=== PATIENT | female | born 1950 | race Asian ===

== ENCOUNTER 2017-09-26 12:54 | Inpatient (IN) | payer MEDICARE, OTHER, MEDICAID ==
[2017-09-26] MEDS: PIPER-TAZO 2.25 GM (PMX) 50 ML IVPB (02:00)
[2017-09-26] MEDS: LEVALBUTEROL (NEB) 1.25 MG/0.5 ML AMP INH (13:30)
[2017-09-26] MEDS: IPRATROPIUM (NEB) 0.5 MG/2.5 ML AMP NEB (13:30)
[2017-09-26 13:39] LABS: ADD MAN DIFF? NO
[2017-09-26 13:44] LABS: WHITE BLOOD COUNT 8.6 10^3/ul (4.8-10.8)
[2017-09-26 13:44] LABS: BASOPHILS % 0.2 % (0.0-2.0); EOSINOPHILS # 0.1 10^3/ul (0.0-0.5); EOSINOPHILS % 1.5 % (0.0-7.0); HEMOGLOBIN 7.4 g/dl (12.0-16.0); LYMPHOCYTES # 0.8 10^3/ul (0.8-2.9); LYMPHOCYTES % 9.8 % (15.0-51.0); MEAN CORPUSCULAR HGB CONC 32.2 g/dl (32.0-37.0); MEAN CORPUSCULAR VOLUME 96.2 fl (82.0-101.0); MEAN PLATELET VOLUME 10.3 fl (7.4-10.4); MONOCYTE # 1.2 10^3/ul (0.3-0.9); MONOCYTES % 13.9 % (0.0-11.0); NEUTROPHIL # 6.3 10^3/ul (1.6-7.5); NEUTROPHILS % 73.4 % (39.0-77.0); NUCLEATED RED BLOOD CELLS% 0.4 /100WBC (0.0-0.0); PLATELET COUNT 141 10^3/UL (140-415); RED BLOOD COUNT 2.39 10^6/ul (4.20-5.40); RED CELL DISTRIBUTION WIDTH 17.4 % (11.5-14.5)
[2017-09-26 13:56] LABS: Allen Test ACCEPTAB; Arterial Base Excess -1.3 mmol/L (-3.0-3); Arterial Blood Gas Oxygen Sat 99.7 mmHG (95.0-98.0); Arterial COHb 1.3 % (0.0-3.0); Arterial Fraction of Oxyhgb 98.2 % (93.0-99.0); Arterial HCO3 25.5 mmol/L (22.0-26.0); Arterial MetHb 0.2 % (0.0-1.5); Arterial Total Hemglobin 8.5 g/dl (12.0-18.0); Arterial pCO2 53.8 mmhg (35-45); MODE MASK - SIMPLE; Site Right Radial
[2017-09-26] MEDS: NACL 3% FOR INHALATION 15 ML NEBU NEB (14:00)
[2017-09-26 14:05] LABS: INR 1.04; PROTIME 13.7 Sec (11.9-14.9); PT RATIO 1.1
[2017-09-26 14:06] LABS: PARTIAL THROMBOPLASTIN TIME 36.5 Sec (25.0-35.0)
[2017-09-26 14:07] LABS: ALANINE AMINOTRANSFERASE 17 IU/L (13-69); ALBUMIN 3.4 g/dl (3.3-4.9); ALBUMIN/GLOBULIN RATIO 0.97; ALKALINE PHOSPHATASE 108 IU/L (42-121); ANION GAP 17 (8-16); ASPARTATE AMINO TRANSFERASE 32 IU/L (15-46); BLOOD UREA NITROGEN 54 mg/dl (7-20); CALCIUM 8.8 mg/dl (8.4-10.2); CARBON DIOXIDE 25 mmol/L (21-31); CHLORIDE 88 mmol/L (97-110); CREATININE 3.86 mg/dl (0.44-1.00); GLUCOSE 132 mg/dl (70-220); POTASSIUM 5.2 mmol/L (3.5-5.1); SODIUM 125 mmol/L (135-144); TOTAL PROTEIN 6.9 g/dl (6.1-8.1)
[2017-09-26 14:08] LABS: LACTIC ACID 1.1 mmol/L (0.5-2.0)
[2017-09-26 14:17] LABS: TROPONIN-I 0.024 ng/ml (0.00-0.12)
[2017-09-26 14:32] LABS: MAGNESIUM 2.3 mg/dl (1.7-2.5)
[2017-09-26] MEDS: MIDODRINE 5 MG TAB GTB (15:23)
[2017-09-26 15:37] LABS: LACTIC ACID 0.9 mmol/L (0.5-2.0)
[2017-09-26] MEDS: CEFEPIME 1GM/50 ML (PMX) 50 ML IVPB (16:44)
[2017-09-26] MEDS ORDERED: NITROGLYCERIN (SL) 0.4 MG TAB SL (17:00)
[2017-09-26] MEDS ORDERED: NACL 0.9% 3 ML SYG IV (17:00)
[2017-09-26] MEDS ORDERED: DOCUSATE SODIUM 100 MG CAP PO (17:00)
[2017-09-26] MEDS ORDERED: METOCLOPRAMIDE 5 MG TAB GTB (17:00)
[2017-09-26] MEDS ORDERED: hydrALAzine 20 MG INJ IV (17:00)
[2017-09-26] MEDS ORDERED: ONDANSETRON 4 MG TAB GTB (17:00)
[2017-09-26] MEDS: ALBUMIN HUMAN 25% 100 ML IV ×2 (17:00→19:02)
[2017-09-26] MEDS ORDERED: NA PHOSPHATE/BIPHOS 133 ML ENEMA PR (17:00)
[2017-09-26] MEDS ORDERED: ACETAMINOPHEN 325 MG TAB PO (17:00)
[2017-09-26] MEDS ORDERED: MAGNESIUM HYDROXIDE 30ML CUP PO (17:00)
[2017-09-26] MEDS: AZITHROMYCIN 500MG/NS (PMX) 250 ML IVPB (17:23)
[2017-09-26] MEDS: ALBUTEROL/IPRATROPIUM (NEB) 3 ML AMP HHN (17:42)
[2017-09-26 17:54] LABS: FREE T4 (FREE THYROXINE) 2.19 ng/dl (0.78-2.44)
[2017-09-26 18:00] LABS: LACTIC ACID 0.8 mmol/L (0.5-2.0)
[2017-09-26] MEDS ORDERED: PIPER-TAZO 3.375 GM IV (PMX) 100 ML IVPB (18:00)
[2017-09-26] MEDS: VANCOMYCIN 1 GM (PMX) 250 ML IVPB (19:02)
[2017-09-26] MEDS ORDERED: MIDODRINE 5 MG TAB GTB (21:00)
[2017-09-27] MEDS: LACTOBACILLUS RHAMNOSUS CAP PO ×3 (00:14→21:00)
[2017-09-27] MEDS: ALBUMIN HUMAN 25% 100 ML IV (00:30)
[2017-09-27] MEDS ORDERED: PHENYLephrine 40 MG in DEXTROSE 5% 496 ML IV (01:30)
[2017-09-27] MEDS: NORepinephrine 8MG/250 ML (PMX 250 ML IV (01:59)
[2017-09-27] MEDS: PIPER-TAZO 2.25 GM (PMX) 50 ML IVPB ×4 (02:00→17:37)
[2017-09-27 02:40] LABS: AADO2 Arterial 180.7 mmHg (7.0-24.0); Allen Test ACCEPTAB; Arterial Base Excess -2.4 mmol/L (-3.0-3); Arterial Blood Gas Oxygen Sat 99.7 mmHG (95.0-98.0); Arterial COHb 1.1 % (0.0-3.0); Arterial Fraction of Oxyhgb 98.2 % (93.0-99.0); Arterial HCO3 22.4 mmol/L (22.0-26.0); Arterial MetHb 0.4 % (0.0-1.5); Arterial pCO2 38.4 mmhg (35-45); MODE VENT - AC; Site Right Radial
[2017-09-27 02:51] LABS: ADD MAN DIFF? NO
[2017-09-27] MEDS ORDERED: HEPARIN 1000 UNITS/ML 10 ML INJ (02:52)
[2017-09-27 02:55] LABS: ABNORMAL IP MESSAGE 1; BASOPHILS % 0.2 % (0.0-2.0); EOSINOPHILS % 0.4 % (0.0-7.0); HEMATOCRIT 21.9 % (37.0-47.0); LYMPHOCYTES # 0.2 10^3/ul (0.8-2.9); LYMPHOCYTES % 2.1 % (15.0-51.0); MEAN CORPUSCULAR HEMOGLOBIN 30.6 pg (29.0-33.0); MEAN CORPUSCULAR HGB CONC 31.1 g/dl (32.0-37.0); MEAN CORPUSCULAR VOLUME 98.6 fl (82.0-101.0); MEAN PLATELET VOLUME 9.8 fl (7.4-10.4); MONOCYTE # 0.9 10^3/ul (0.3-0.9); MONOCYTES % 8.6 % (0.0-11.0); NEUTROPHIL # 8.8 10^3/ul (1.6-7.5); NEUTROPHILS % 86.1 % (39.0-77.0); NUCLEATED RED BLOOD CELLS% 0.3 /100WBC (0.0-0.0); RED BLOOD COUNT 2.22 10^6/ul (4.20-5.40); RED CELL DISTRIBUTION WIDTH 17.8 % (11.5-14.5)
[2017-09-27 02:55] LABS: WHITE BLOOD COUNT 10.2 10^3/ul (4.8-10.8)
[2017-09-27 02:57] LABS: PLATELET COUNT 111 10^3/UL (140-415); POSITIVE DIFF @See below
[2017-09-27 03:11] LABS: CHOLESTEROL 98 mg/dl (100-200)
[2017-09-27 03:11] LABS: HDL CHOLESTEROL 32 mg/dl (35-98); LDL CHOLESTEROL,CALCULATED 48 mg/dl; TRIGLYCERIDES 91 mg/dl (0-149)
[2017-09-27 03:12] LABS: ALANINE AMINOTRANSFERASE 18 IU/L (13-69); ALBUMIN 3.8 g/dl (3.3-4.9); ALBUMIN/GLOBULIN RATIO 1.31; ALKALINE PHOSPHATASE 97 IU/L (42-121); ANION GAP 21 (8-16); ASPARTATE AMINO TRANSFERASE 25 IU/L (15-46); BILIRUBIN,INDIRECT 0.1 mg/dl (0-1.1); BILIRUBIN,TOTAL 0.1 mg/dl (0.2-1.3); BLOOD UREA NITROGEN 32 mg/dl (7-20); CALCIUM 8.6 mg/dl (8.4-10.2); CARBON DIOXIDE 26 mmol/L (21-31); CHLORIDE 91 mmol/L (97-110); CREATININE 2.75 mg/dl (0.44-1.00); GLUCOSE 112 mg/dl (70-220); POTASSIUM 4.4 mmol/L (3.5-5.1); SODIUM 134 mmol/L (135-144); TOTAL PROTEIN 6.7 g/dl (6.1-8.1)
[2017-09-27] MEDS: HEPARIN 1000 UNITS/ML 10 ML INJ CATHETER (03:12)
[2017-09-27 03:23] LABS: TROPONIN-I 0.032 ng/ml (0.00-0.12)
[2017-09-27 03:38] LABS: HEMOGLOBIN 6.8 g/dl (12.0-16.0)
[2017-09-27 03:51] LABS: LACTIC ACID 5.1 mmol/L (0.5-2.0)
[2017-09-27 04:36] LABS: ADD MAN DIFF? NO
[2017-09-27 05:01] LABS: ANION GAP 21 (8-16); BLOOD UREA NITROGEN 34 mg/dl (7-20); CALCIUM 8.9 mg/dl (8.4-10.2); CARBON DIOXIDE 26 mmol/L (21-31); CHLORIDE 93 mmol/L (97-110); CREATININE 2.65 mg/dl (0.44-1.00); GLUCOSE 103 mg/dl (70-220); MAGNESIUM 2.1 mg/dl (1.7-2.5); PHOSPHORUS 4.9 mg/dl (2.5-4.9); POTASSIUM 4.9 mmol/L (3.5-5.1); SODIUM 135 mmol/L (135-144)
[2017-09-27 05:02] LABS: IMMEDIATE SPIN CROSSMATCH 1 4
[2017-09-27 05:23] LABS: BASOPHILS % 0.2 % (0.0-2.0); EOSINOPHILS % 0.2 % (0.0-7.0); HEMATOCRIT 22.7 % (37.0-47.0); HEMOGLOBIN 7.2 g/dl (12.0-16.0); LYMPHOCYTES % 3.2 % (15.0-51.0); MEAN CORPUSCULAR HEMOGLOBIN 30.8 pg (29.0-33.0); MEAN CORPUSCULAR HGB CONC 31.7 g/dl (32.0-37.0); MEAN PLATELET VOLUME 9.5 fl (7.4-10.4); MONOCYTES % 11.4 % (0.0-11.0); NEUTROPHILS % 82.8 % (39.0-77.0); PLATELET COUNT 142 10^3/UL (140-440); RED BLOOD COUNT 2.34 10^6/ul (4.20-5.40); RED CELL DISTRIBUTION WIDTH 17.6 % (11.5-14.5)
[2017-09-27 05:23] LABS: WHITE BLOOD COUNT 11.6 10^3/ul (4.8-10.8)
[2017-09-27 05:24] LABS: LYMPHOCYTES # 0.4 10^3/ul (0.8-2.9); MONOCYTE # 1.3 10^3/ul (0.3-0.9); NEUTROPHIL # 9.6 10^3/ul (1.6-7.5); NUCLEATED RED BLOOD CELLS% 0.2 /100WBC (0.0-0.0)
[2017-09-27] MEDS: LANSOPRAZOLE 30 MG CAP GTB (06:00)
[2017-09-27] MEDS ORDERED: EPINEPHrine 0.1 MG/ML SYG (07:00)
[2017-09-27] MEDS ORDERED: NA BICARBONATE 8.4% 50 ML SYG (07:00)
[2017-09-27] MEDS: LEVOTHYROXINE 150 MCG TAB GTB (07:00)
[2017-09-27] MEDS: SILDENAFIL 20 MG TAB GTB (08:57)
[2017-09-27] MEDS: MIDODRINE 5 MG TAB GTB ×3 (08:57→17:37)
[2017-09-27] MEDS: FOLIC ACID 1 MG TAB GTB (08:57)
[2017-09-27] MEDS: LACTULOSE 30ML CUP GTB (08:57)
[2017-09-27 12:18] LABS: LACTIC ACID 1.5 mmol/L (0.5-2.0)
[2017-09-27] MEDS: HYDROCODONE/APAP (5/325) TAB PO (15:02)
[2017-09-27 15:34] LABS: LACTIC ACID 1.2 mmol/L (0.5-2.0)
[2017-09-27] MEDS: EPOETIN 10000 UNITS/1 ML INJ (ESRD) SC (17:39)
[2017-09-27 19:06] LABS: LACTIC ACID 1.1 mmol/L (0.5-2.0)
[2017-09-27 22:28] LABS: LACTIC ACID 1.1 mmol/L (0.5-2.0)
[2017-09-27] MEDS: morphine 2 MG INJ IV (23:06)
[2017-09-28] MEDS: PIPER-TAZO 2.25 GM (PMX) 50 ML IVPB ×4 (00:37→18:42)
[2017-09-28 03:20] LABS: LACTIC ACID 1.1 mmol/L (0.5-2.0)
[2017-09-28 05:37] LABS: ADD MAN DIFF? NO
[2017-09-28 05:39] LABS: BASOPHILS % 0.4 % (0.0-2.0); EOSINOPHILS # 0.1 10^3/ul (0.0-0.5); EOSINOPHILS % 0.8 % (0.0-7.0); HEMOGLOBIN 7.6 g/dl (12.0-16.0); LYMPHOCYTES # 0.9 10^3/ul (0.8-2.9); LYMPHOCYTES % 10.3 % (15.0-51.0); MEAN CORPUSCULAR HEMOGLOBIN 30.6 pg (29.0-33.0); MEAN CORPUSCULAR VOLUME 92.7 fl (82.0-101.0); MEAN PLATELET VOLUME 9.1 fl (7.4-10.4); MONOCYTE # 0.9 10^3/ul (0.3-0.9); MONOCYTES % 11.1 % (0.0-11.0); NEUTROPHIL # 6.5 10^3/ul (1.6-7.5); NEUTROPHILS % 76.7 % (39.0-77.0); NUCLEATED RED BLOOD CELLS% 0.2 /100WBC (0.0-0.0); PLATELET COUNT 117 10^3/UL (140-415); RED BLOOD COUNT 2.48 10^6/ul (4.20-5.40); RED CELL DISTRIBUTION WIDTH 18.1 % (11.5-14.5)
[2017-09-28 05:39] LABS: WHITE BLOOD COUNT 8.5 10^3/ul (4.8-10.8)
[2017-09-28] MEDS: LANSOPRAZOLE 30 MG CAP GTB (06:00)
[2017-09-28 06:02] LABS: MAGNESIUM 2.1 mg/dl (1.7-2.5)
[2017-09-28 06:10] LABS: ANION GAP 20 (8-16); BLOOD UREA NITROGEN 38 mg/dl (7-20); CALCIUM 8.7 mg/dl (8.4-10.2); CARBON DIOXIDE 23 mmol/L (21-31); CHLORIDE 94 mmol/L (97-110); CREATININE 3.52 mg/dl (0.44-1.00); GLUCOSE 61 mg/dl (70-220); POTASSIUM 3.4 mmol/L (3.5-5.1); SODIUM 134 mmol/L (135-144)
[2017-09-28] MEDS: LEVOTHYROXINE 150 MCG TAB GTB (07:00)
[2017-09-28] MEDS: LIDOCAINE 1% (MPF) 5 ML VIAL SC (07:22)
[2017-09-28] MEDS: POTASSIUM CHLORIDE 100 ML IVPB (08:44)
[2017-09-28] MEDS: SILDENAFIL 20 MG TAB GTB (09:00)
[2017-09-28] MEDS: MIDODRINE 5 MG TAB GTB ×3 (09:00→16:53)
[2017-09-28] MEDS: FOLIC ACID 1 MG TAB GTB (09:00)
[2017-09-28] MEDS: LACTULOSE 30ML CUP GTB (09:00)
[2017-09-28] MEDS: LACTOBACILLUS RHAMNOSUS CAP PO ×2 (09:00→20:53)
[2017-09-28] MEDS: FLUCONAZOLE 100 MG TAB PO (13:00)
[2017-09-28] MEDS: IOHEXOL 14.3 MG(I)/ML (ADULT) BTL PO (13:46)
[2017-09-28] MEDS: morphine 2 MG INJ IV (13:56)
[2017-09-28 14:20] LABS: PATH REVIEW CH
[2017-09-28] MEDS: LORAZEPAM 0.5 MG TAB GTB (20:53)
[2017-09-28] MEDS: HYDROCODONE/APAP (5/325) TAB PO (20:54)
[2017-09-29] MEDS: ALBUMIN HUMAN 25% 100 ML IV (01:08)
[2017-09-29] MEDS: PIPER-TAZO 2.25 GM (PMX) 50 ML IVPB ×3 (05:13→12:00)
[2017-09-29] MEDS: LANSOPRAZOLE 30 MG CAP GTB (05:13)
[2017-09-29 06:02] LABS: ADD MAN DIFF? NO
[2017-09-29 06:08] LABS: BASOPHIL # 0.1 10^3/ul (0.0-0.1); BASOPHILS % 0.7 % (0.0-2.0); EOSINOPHILS # 0.2 10^3/ul (0.0-0.5); EOSINOPHILS % 3.4 % (0.0-7.0); HEMATOCRIT 23.4 % (37.0-47.0); HEMOGLOBIN 7.6 g/dl (12.0-16.0); LYMPHOCYTES # 1.2 10^3/ul (0.8-2.9); LYMPHOCYTES % 17.1 % (15.0-51.0); MEAN CORPUSCULAR HEMOGLOBIN 30.3 pg (29.0-33.0); MEAN CORPUSCULAR HGB CONC 32.5 g/dl (32.0-37.0); MEAN CORPUSCULAR VOLUME 93.2 fl (82.0-101.0); MEAN PLATELET VOLUME 9.8 fl (7.4-10.4); MONOCYTE # 0.9 10^3/ul (0.3-0.9); MONOCYTES % 12.7 % (0.0-11.0); NEUTROPHIL # 4.4 10^3/ul (1.6-7.5); NEUTROPHILS % 64.8 % (39.0-77.0); PLATELET COUNT 133 10^3/UL (140-415); RED BLOOD COUNT 2.51 10^6/ul (4.20-5.40); RED CELL DISTRIBUTION WIDTH 17.9 % (11.5-14.5)
[2017-09-29 06:08] LABS: WHITE BLOOD COUNT 6.9 10^3/ul (4.8-10.8)
[2017-09-29] MEDS: LEVOTHYROXINE 150 MCG TAB GTB (06:09)
[2017-09-29] MEDS: NORepinephrine 16 MG in SOD CHLORIDE 0.9% 484 ML IV (06:11)
[2017-09-29 06:48] LABS: ANION GAP 28 (8-16); BLOOD UREA NITROGEN 41 mg/dl (7-20); CALCIUM 8.8 mg/dl (8.4-10.2); CARBON DIOXIDE 16 mmol/L (21-31); CHLORIDE 93 mmol/L (97-110); CREATININE 3.86 mg/dl (0.44-1.00); POTASSIUM 3.6 mmol/L (3.5-5.1); SODIUM 133 mmol/L (135-144)
[2017-09-29] MEDS: DEXTROSE 50% 50 ML SYRINGE IV (07:00)
[2017-09-29 07:03] LABS: GLUCOSE 38 mg/dl (70-220)
[2017-09-29] MEDS ORDERED: DEXTROSE 50% 50 ML SYRINGE (07:13)
[2017-09-29] MEDS: MIDODRINE 5 MG TAB GTB ×3 (09:00→17:00)
[2017-09-29] MEDS: LACTULOSE 30ML CUP GTB (09:00)
[2017-09-29] MEDS: LACTOBACILLUS RHAMNOSUS CAP PO ×2 (09:00→21:00)
[2017-09-29] MEDS: FLUCONAZOLE 100 MG TAB PO (09:00)
[2017-09-29] MEDS: FOLIC ACID 1 MG TAB GTB (09:00)
[2017-09-29] MEDS: SILDENAFIL 20 MG TAB GTB (09:00)
[2017-09-29 12:16] LABS: LACTIC ACID 0.7 mmol/L (0.5-2.0)
[2017-09-29 13:30] LABS: HEPATITIS B SURFACE ANTIGEN NEGATIVE (NEGATIVE)
[2017-09-29] MEDS: HEPARIN 1000 UNITS/ML 10 ML INJ CATHETER (15:08)
[2017-09-29] MEDS: MEROPENEM 500MG/50 ML (PMX) 50 ML IVPB (16:28)
[2017-09-29] MEDS: morphine 2 MG INJ IV (16:28)
[2017-09-29] MEDS: EPOETIN 10000 UNITS/1 ML INJ (ESRD) SC (18:32)
[2017-09-29] MEDS: TOBRAMYCIN/0.25NS 300 MG/5 ML INHAL NEB (21:20)
[2017-09-29] MEDS: HYDROCODONE/APAP (5/325) TAB PO (23:15)
[2017-09-29] MEDS: LORAZEPAM 0.5 MG TAB GTB (23:16)
[2017-09-30 05:46] LABS: ADD MAN DIFF? NO
[2017-09-30 05:50] LABS: BASOPHILS % 0.5 % (0.0-2.0); EOSINOPHILS # 0.2 10^3/ul (0.0-0.5); EOSINOPHILS % 2.3 % (0.0-7.0); HEMATOCRIT 25.3 % (37.0-47.0); HEMOGLOBIN 8.1 g/dl (12.0-16.0); LYMPHOCYTES # 1.2 10^3/ul (0.8-2.9); LYMPHOCYTES % 14.1 % (15.0-51.0); MEAN CORPUSCULAR VOLUME 93.7 fl (82.0-101.0); MEAN PLATELET VOLUME 9.4 fl (7.4-10.4); MONOCYTE # 1.2 10^3/ul (0.3-0.9); MONOCYTES % 15.2 % (0.0-11.0); NEUTROPHIL # 5.4 10^3/ul (1.6-7.5); NEUTROPHILS % 66.8 % (39.0-77.0); PLATELET COUNT 154 10^3/UL (140-415); RED CELL DISTRIBUTION WIDTH 18.3 % (11.5-14.5)
[2017-09-30 05:50] LABS: WHITE BLOOD COUNT 8.1 10^3/ul (4.8-10.8)
[2017-09-30 06:07] LABS: LACTIC ACID 0.9 mmol/L (0.5-2.0)
[2017-09-30 06:13] LABS: ANION GAP 23 (8-16); BLOOD UREA NITROGEN 18 mg/dl (7-20); CALCIUM 8.6 mg/dl (8.4-10.2); CARBON DIOXIDE 21 mmol/L (21-31); CHLORIDE 100 mmol/L (97-110); CREATININE 2.15 mg/dl (0.44-1.00); GLUCOSE 68 mg/dl (70-220); POTASSIUM 3.6 mmol/L (3.5-5.1); SODIUM 140 mmol/L (135-144)
[2017-09-30] MEDS: LEVOTHYROXINE 150 MCG TAB GTB (06:30)
[2017-09-30] MEDS: LANSOPRAZOLE 30 MG CAP GTB (06:30)
[2017-09-30] MEDS: FOLIC ACID 1 MG TAB GTB (08:49)
[2017-09-30] MEDS: LACTULOSE 30ML CUP GTB (08:49)
[2017-09-30] MEDS: FLUCONAZOLE 100 MG TAB PO (08:49)
[2017-09-30] MEDS: LACTOBACILLUS RHAMNOSUS CAP PO ×2 (08:49→20:40)
[2017-09-30] MEDS: MIDODRINE 5 MG TAB GTB ×3 (08:49→18:11)
[2017-09-30] MEDS: TOBRAMYCIN/0.25NS 300 MG/5 ML INHAL NEB ×2 (09:46→19:45)
[2017-09-30] MEDS: SILDENAFIL 20 MG TAB GTB (10:24)
[2017-09-30] MEDS ORDERED: VANCOMYCIN IV PER PHARMACY XX (12:00)
[2017-09-30] MEDS: VANCOMYCIN 1.25 GM in SOD CHLORIDE 0.9% 250 ML IVPB ×2 (13:59→14:02)
[2017-09-30] MEDS: MEROPENEM 500MG/50 ML (PMX) 50 ML IVPB (16:01)
[2017-10-01 05:34] LABS: ADD MAN DIFF? NO; BASOPHIL # 0.1 10^3/ul (0.0-0.1); BASOPHILS % 0.7 % (0.0-2.0); EOSINOPHILS # 0.3 10^3/ul (0.0-0.5); EOSINOPHILS % 3.5 % (0.0-7.0); HEMATOCRIT 25.9 % (37.0-47.0); HEMOGLOBIN 8.2 g/dl (12.0-16.0); LYMPHOCYTES # 1.3 10^3/ul (0.8-2.9); LYMPHOCYTES % 15.4 % (15.0-51.0); MEAN CORPUSCULAR HEMOGLOBIN 30.1 pg (29.0-33.0); MEAN CORPUSCULAR HGB CONC 31.7 g/dl (32.0-37.0); MEAN CORPUSCULAR VOLUME 95.2 fl (82.0-101.0); MEAN PLATELET VOLUME 9.2 fl (7.4-10.4); MONOCYTE # 1.1 10^3/ul (0.3-0.9); MONOCYTES % 12.6 % (0.0-11.0); NEUTROPHIL # 5.7 10^3/ul (1.6-7.5); NEUTROPHILS % 66.3 % (39.0-77.0); PLATELET COUNT 142 10^3/UL (140-415); RED BLOOD COUNT 2.72 10^6/ul (4.20-5.40); RED CELL DISTRIBUTION WIDTH 18.2 % (11.5-14.5)
[2017-10-01 05:34] LABS: WHITE BLOOD COUNT 8.6 10^3/ul (4.8-10.8)
[2017-10-01 06:10] LABS: ANION GAP 16 (8-16); BLOOD UREA NITROGEN 22 mg/dl (7-20); CALCIUM 8.6 mg/dl (8.4-10.2); CARBON DIOXIDE 26 mmol/L (21-31); CHLORIDE 99 mmol/L (97-110); CREATININE 2.82 mg/dl (0.44-1.00); GLUCOSE 101 mg/dl (70-220); POTASSIUM 3.1 mmol/L (3.5-5.1); SODIUM 138 mmol/L (135-144)
[2017-10-01] MEDS: LANSOPRAZOLE 30 MG CAP GTB (06:30)
[2017-10-01] MEDS: LEVOTHYROXINE 150 MCG TAB GTB (06:30)
[2017-10-01] MEDS: POTASSIUM CHLORIDE 20 MEQ POWDER FOR ORAL SOLN GTB (08:34)
[2017-10-01] MEDS: LACTULOSE 30ML CUP GTB (08:34)
[2017-10-01] MEDS: FLUCONAZOLE 100 MG TAB PO (08:35)
[2017-10-01] MEDS: LACTOBACILLUS RHAMNOSUS CAP PO ×2 (08:36→21:26)
[2017-10-01] MEDS: FOLIC ACID 1 MG TAB GTB (08:37)
[2017-10-01] MEDS: MIDODRINE 5 MG TAB GTB ×3 (08:44→16:51)
[2017-10-01] MEDS: SILDENAFIL 20 MG TAB GTB (09:00)
[2017-10-01] MEDS: NORepinephrine 16 MG in SOD CHLORIDE 0.9% 484 ML IV (09:55)
[2017-10-01] MEDS: TOBRAMYCIN/0.25NS 300 MG/5 ML INHAL NEB ×2 (10:15→19:57)
[2017-10-01] MEDS: HEPARIN 1000 UNITS/ML 10 ML INJ CATHETER (14:18)
[2017-10-01] MEDS: MEROPENEM 500MG/50 ML (PMX) 50 ML IVPB (16:20)
[2017-10-01] MEDS: EPOETIN 10000 UNITS/1 ML INJ (ESRD) SC (16:55)
[2017-10-02 05:38] LABS: ADD MAN DIFF? NO
[2017-10-02 05:46] LABS: BASOPHIL # 0.1 10^3/ul (0.0-0.1); BASOPHILS % 0.6 % (0.0-2.0); EOSINOPHILS # 0.3 10^3/ul (0.0-0.5); EOSINOPHILS % 3.3 % (0.0-7.0); HEMATOCRIT 25.6 % (37.0-47.0); HEMOGLOBIN 8.2 g/dl (12.0-16.0); LYMPHOCYTES # 1.6 10^3/ul (0.8-2.9); LYMPHOCYTES % 20.5 % (15.0-51.0); MEAN CORPUSCULAR HEMOGLOBIN 30.7 pg (29.0-33.0); MEAN CORPUSCULAR VOLUME 95.9 fl (82.0-101.0); MEAN PLATELET VOLUME 9.2 fl (7.4-10.4); MONOCYTE # 1.1 10^3/ul (0.3-0.9); MONOCYTES % 14.2 % (0.0-11.0); NEUTROPHIL # 4.6 10^3/ul (1.6-7.5); NEUTROPHILS % 58.4 % (39.0-77.0); PLATELET COUNT 136 10^3/UL (140-415); RED BLOOD COUNT 2.67 10^6/ul (4.20-5.40); RED CELL DISTRIBUTION WIDTH 18.3 % (11.5-14.5)
[2017-10-02 05:46] LABS: WHITE BLOOD COUNT 7.9 10^3/ul (4.8-10.8)
[2017-10-02 06:12] LABS: VANCOMYCIN,RANDOM 20.7 ug/ml
[2017-10-02 06:14] LABS: BLOOD UREA NITROGEN 11 mg/dl (7-20); CALCIUM 8.7 mg/dl (8.4-10.2); CARBON DIOXIDE 25 mmol/L (21-31); CHLORIDE 101 mmol/L (97-110); CREATININE 1.73 mg/dl (0.44-1.00); GLUCOSE 102 mg/dl (70-220); SODIUM 137 mmol/L (135-144)
[2017-10-02] MEDS: LEVOTHYROXINE 150 MCG TAB GTB (06:14)
[2017-10-02] MEDS: LANSOPRAZOLE 30 MG CAP GTB (06:14)
[2017-10-02 06:19] LABS: ANION GAP 14 (8-16); POTASSIUM 2.9 mmol/L (3.5-5.1)
[2017-10-02] MEDS: POTASSIUM CHLORIDE 20 MEQ POWDER FOR ORAL SOLN NGT (07:04)
[2017-10-02 08:02] LABS: PHOSPHORUS 1.4 mg/dl (2.5-4.9)
[2017-10-02 08:02] LABS: MAGNESIUM 1.9 mg/dl (1.7-2.5)
[2017-10-02] MEDS: LACTULOSE 30ML CUP GTB (08:08)
[2017-10-02] MEDS: FOLIC ACID 1 MG TAB GTB (08:08)
[2017-10-02] MEDS: LACTOBACILLUS RHAMNOSUS CAP PO ×2 (08:08→20:23)
[2017-10-02] MEDS: MIDODRINE 5 MG TAB GTB ×3 (08:08→17:51)
[2017-10-02] MEDS: FLUCONAZOLE 100 MG TAB PO (08:08)
[2017-10-02] MEDS: SILDENAFIL 20 MG TAB GTB (08:10)
[2017-10-02] MEDS: TOBRAMYCIN/0.25NS 300 MG/5 ML INHAL NEB ×2 (09:05→19:54)
[2017-10-02] MEDS ORDERED: POTASSIUM PHOSPHATE 20 MEQ in SOD CHLORIDE 0.9% 250 ML IVPB (10:30)
[2017-10-02] MEDS: MEROPENEM 500MG/50 ML (PMX) 50 ML IVPB (16:33)
[2017-10-02] MEDS: ACETAMINOPHEN 650MG/20.3ML CUP GTB (20:23)
[2017-10-03 05:54] LABS: ADD MAN DIFF? NO
[2017-10-03] MEDS: LANSOPRAZOLE 30 MG CAP GTB (06:02)
[2017-10-03] MEDS: LEVOTHYROXINE 150 MCG TAB GTB (06:02)
[2017-10-03 06:16] LABS: BASOPHIL # 0.1 10^3/ul (0.0-0.1); BASOPHILS % 0.6 % (0.0-2.0); EOSINOPHILS # 0.4 10^3/ul (0.0-0.5); EOSINOPHILS % 3.7 % (0.0-7.0); HEMATOCRIT 26.6 % (37.0-47.0); HEMOGLOBIN 8.3 g/dl (12.0-16.0); LYMPHOCYTES # 2.2 10^3/ul (0.8-2.9); LYMPHOCYTES % 22.3 % (15.0-51.0); MEAN CORPUSCULAR HEMOGLOBIN 30.2 pg (29.0-33.0); MEAN CORPUSCULAR HGB CONC 31.2 g/dl (32.0-37.0); MEAN CORPUSCULAR VOLUME 96.7 fl (82.0-101.0); MEAN PLATELET VOLUME 9.6 fl (7.4-10.4); MONOCYTE # 1.2 10^3/ul (0.3-0.9); MONOCYTES % 12.2 % (0.0-11.0); NEUTROPHIL # 5.5 10^3/ul (1.6-7.5); NEUTROPHILS % 56.5 % (39.0-77.0); NUCLEATED RED BLOOD CELLS% 0.2 /100WBC (0.0-0.0); PLATELET COUNT 140 10^3/UL (140-415); RED BLOOD COUNT 2.75 10^6/ul (4.20-5.40); RED CELL DISTRIBUTION WIDTH 18.6 % (11.5-14.5)
[2017-10-03 06:16] LABS: WHITE BLOOD COUNT 9.8 10^3/ul (4.8-10.8)
[2017-10-03 06:43] LABS: ANION GAP 16 (8-16); BLOOD UREA NITROGEN 18 mg/dl (7-20); CALCIUM 8.9 mg/dl (8.4-10.2); CARBON DIOXIDE 22 mmol/L (21-31); CHLORIDE 101 mmol/L (97-110); CREATININE 2.38 mg/dl (0.44-1.00); GLUCOSE 103 mg/dl (70-220); POTASSIUM 3.3 mmol/L (3.5-5.1); SODIUM 136 mmol/L (135-144)
[2017-10-03] MEDS ORDERED: ALBUMIN HUMAN 5% 250 ML IV (08:00)
[2017-10-03] MEDS: LACTULOSE 30ML CUP GTB (08:02)
[2017-10-03] MEDS: MIDODRINE 5 MG TAB GTB ×3 (08:02→16:29)
[2017-10-03] MEDS: POTASSIUM CHLORIDE 100 ML IVPB ×2 (08:02→10:32)
[2017-10-03] MEDS: FLUCONAZOLE 100 MG TAB PO (08:03)
[2017-10-03] MEDS: FOLIC ACID 1 MG TAB GTB (08:03)
[2017-10-03] MEDS: LACTOBACILLUS RHAMNOSUS CAP PO ×2 (08:03→20:10)
[2017-10-03] MEDS: SILDENAFIL 20 MG TAB GTB (08:04)
[2017-10-03] MEDS: TOBRAMYCIN/0.25NS 300 MG/5 ML INHAL NEB ×2 (09:26→19:23)
[2017-10-03] MEDS: HEPARIN 1000 UNITS/ML 10 ML INJ CATHETER (15:59)
[2017-10-03] MEDS: VANCOMYCIN 1 GM 250 ML IVPB (16:28)
[2017-10-03] MEDS: MEROPENEM 500MG/50 ML (PMX) 50 ML IVPB (16:28)
[2017-10-04] MEDS: LANSOPRAZOLE 30 MG CAP GTB (06:03)
[2017-10-04] MEDS: LEVOTHYROXINE 150 MCG TAB GTB (06:03)
[2017-10-04 06:26] LABS: ADD MAN DIFF? NO
[2017-10-04 06:38] LABS: BASOPHIL # 0.1 10^3/ul (0.0-0.1); BASOPHILS % 0.6 % (0.0-2.0); EOSINOPHILS # 0.3 10^3/ul (0.0-0.5); EOSINOPHILS % 2.5 % (0.0-7.0); HEMATOCRIT 27.4 % (37.0-47.0); HEMOGLOBIN 8.5 g/dl (12.0-16.0); LYMPHOCYTES # 2.1 10^3/ul (0.8-2.9); LYMPHOCYTES % 19.2 % (15.0-51.0); MEAN CORPUSCULAR VOLUME 96.8 fl (82.0-101.0); MEAN PLATELET VOLUME 9.8 fl (7.4-10.4); MONOCYTE # 1.2 10^3/ul (0.3-0.9); MONOCYTES % 10.8 % (0.0-11.0); NEUTROPHILS % 63.1 % (39.0-77.0); PLATELET COUNT 138 10^3/UL (140-415); RED BLOOD COUNT 2.83 10^6/ul (4.20-5.40); RED CELL DISTRIBUTION WIDTH 18.6 % (11.5-14.5)
[2017-10-04 07:02] LABS: PHOSPHORUS 1.3 mg/dl (2.5-4.9)
[2017-10-04 07:02] LABS: MAGNESIUM 1.8 mg/dl (1.7-2.5)
[2017-10-04 07:12] LABS: ANION GAP 16 (8-16); BLOOD UREA NITROGEN 13 mg/dl (7-20); CALCIUM 8.5 mg/dl (8.4-10.2); CARBON DIOXIDE 23 mmol/L (21-31); CHLORIDE 102 mmol/L (97-110); CREATININE 1.64 mg/dl (0.44-1.00); GLUCOSE 117 mg/dl (70-220); POTASSIUM 3.7 mmol/L (3.5-5.1); SODIUM 137 mmol/L (135-144)
[2017-10-04] MEDS: TOBRAMYCIN/0.25NS 300 MG/5 ML INHAL NEB ×2 (07:43→20:19)
[2017-10-04] MEDS: LACTULOSE 30ML CUP GTB (08:03)
[2017-10-04] MEDS: MIDODRINE 5 MG TAB GTB ×3 (08:04→17:41)
[2017-10-04] MEDS: FOLIC ACID 1 MG TAB GTB (08:04)
[2017-10-04] MEDS: SILDENAFIL 20 MG TAB GTB ×2 (08:04→08:06)
[2017-10-04] MEDS: LACTOBACILLUS RHAMNOSUS CAP PO ×2 (08:05→20:14)
[2017-10-04] MEDS: FLUCONAZOLE 100 MG TAB PO (08:05)
[2017-10-04] MEDS: LIDOCAINE 1% (MDV) 10 ML INJ (09:27)
[2017-10-04 09:30] LABS: FLD MN% 84.5 %; FLD PMN% 15.5 %; FLD RBC 1000 /uL; FLD WBC 123 /cmm
[2017-10-04] MEDS: NEUTRA-PHOS 250 MG PACKET GTB ×2 (10:01→20:14)
[2017-10-04 10:02] LABS: FLD CLARITY CLEAR; FLD COLOR YELLOW
[2017-10-04 10:02] LABS: FLD TYPE PARACENTHESIS
[2017-10-04] MEDS: EPOETIN 10000 UNITS/1 ML INJ (ESRD) SC (17:42)
[2017-10-04] MEDS: MEROPENEM 500MG/50 ML (PMX) 50 ML IVPB (20:14)
[2017-10-05 06:06] LABS: ADD MAN DIFF? NO
[2017-10-05] MEDS: LEVOTHYROXINE 150 MCG TAB GTB (06:15)
[2017-10-05] MEDS: LANSOPRAZOLE 30 MG CAP GTB (06:15)
[2017-10-05 06:27] LABS: BASOPHIL # 0.1 10^3/ul (0.0-0.1); BASOPHILS % 0.6 % (0.0-2.0); EOSINOPHILS # 0.2 10^3/ul (0.0-0.5); EOSINOPHILS % 2.2 % (0.0-7.0); HEMATOCRIT 26.2 % (37.0-47.0); HEMOGLOBIN 8.2 g/dl (12.0-16.0); LYMPHOCYTES # 2.4 10^3/ul (0.8-2.9); LYMPHOCYTES % 21.8 % (15.0-51.0); MEAN CORPUSCULAR HEMOGLOBIN 30.4 pg (29.0-33.0); MEAN CORPUSCULAR HGB CONC 31.3 g/dl (32.0-37.0); MEAN PLATELET VOLUME 9.7 fl (7.4-10.4); MONOCYTE # 1.4 10^3/ul (0.3-0.9); MONOCYTES % 12.5 % (0.0-11.0); NEUTROPHIL # 6.5 10^3/ul (1.6-7.5); NEUTROPHILS % 59.8 % (39.0-77.0); PLATELET COUNT 130 10^3/UL (140-415); RED CELL DISTRIBUTION WIDTH 18.9 % (11.5-14.5)
[2017-10-05 06:27] LABS: WHITE BLOOD COUNT 10.9 10^3/ul (4.8-10.8)
[2017-10-05 07:04] LABS: ANION GAP 13 (8-16); BLOOD UREA NITROGEN 20 mg/dl (7-20); CALCIUM 8.4 mg/dl (8.4-10.2); CARBON DIOXIDE 27 mmol/L (21-31); CHLORIDE 101 mmol/L (97-110); CREATININE 2.38 mg/dl (0.44-1.00); GLUCOSE 90 mg/dl (70-220); MAGNESIUM 1.8 mg/dl (1.7-2.5); POTASSIUM 3.7 mmol/L (3.5-5.1); SODIUM 137 mmol/L (135-144)
[2017-10-05] MEDS: FOLIC ACID 1 MG TAB GTB (08:36)
[2017-10-05] MEDS: MIDODRINE 5 MG TAB GTB ×3 (08:36→16:02)
[2017-10-05] MEDS: FLUCONAZOLE 100 MG TAB PO (08:36)
[2017-10-05] MEDS: LACTOBACILLUS RHAMNOSUS CAP PO ×2 (08:36→21:12)
[2017-10-05] MEDS: NEUTRA-PHOS 250 MG PACKET GTB ×2 (08:36→21:12)
[2017-10-05] MEDS: LACTULOSE 30ML CUP GTB (08:36)
[2017-10-05] MEDS: SILDENAFIL 20 MG TAB GTB (09:00)
[2017-10-05] MEDS: HEPARIN 1000 UNITS/ML 10 ML INJ CATHETER (11:16)
[2017-10-05] MEDS: TOBRAMYCIN/0.25NS 300 MG/5 ML INHAL NEB ×2 (14:06→19:20)
[2017-10-05] MEDS: MEROPENEM 500MG/50 ML (PMX) 50 ML IVPB (16:02)
[2017-10-06 05:37] LABS: ADD MAN DIFF? NO
[2017-10-06 05:43] LABS: WHITE BLOOD COUNT 10.9 10^3/ul (4.8-10.8)
[2017-10-06 05:43] LABS: BASOPHIL # 0.1 10^3/ul (0.0-0.1); BASOPHILS % 0.6 % (0.0-2.0); EOSINOPHILS # 0.2 10^3/ul (0.0-0.5); EOSINOPHILS % 1.6 % (0.0-7.0); HEMATOCRIT 26.3 % (37.0-47.0); HEMOGLOBIN 8.2 g/dl (12.0-16.0); LYMPHOCYTES # 2.2 10^3/ul (0.8-2.9); LYMPHOCYTES % 20.5 % (15.0-51.0); MEAN CORPUSCULAR HEMOGLOBIN 29.8 pg (29.0-33.0); MEAN CORPUSCULAR HGB CONC 31.2 g/dl (32.0-37.0); MEAN CORPUSCULAR VOLUME 95.6 fl (82.0-101.0); MEAN PLATELET VOLUME 9.9 fl (7.4-10.4); MONOCYTE # 1.5 10^3/ul (0.3-0.9); MONOCYTES % 13.3 % (0.0-11.0); NEUTROPHIL # 6.8 10^3/ul (1.6-7.5); NUCLEATED RED BLOOD CELLS% 0.2 /100WBC (0.0-0.0); PLATELET COUNT 121 10^3/UL (140-415); RED BLOOD COUNT 2.75 10^6/ul (4.20-5.40); RED CELL DISTRIBUTION WIDTH 18.8 % (11.5-14.5)
[2017-10-06] MEDS: LANSOPRAZOLE 30 MG CAP GTB (05:55)
[2017-10-06 06:20] LABS: VANCOMYCIN,RANDOM 20.7 ug/ml
[2017-10-06 06:28] LABS: ANION GAP 14 (8-16); BLOOD UREA NITROGEN 17 mg/dl (7-20); CALCIUM 8.3 mg/dl (8.4-10.2); CARBON DIOXIDE 27 mmol/L (21-31); CHLORIDE 103 mmol/L (97-110); CREATININE 1.76 mg/dl (0.44-1.00); GLUCOSE 110 mg/dl (70-220); MAGNESIUM 1.8 mg/dl (1.7-2.5); POTASSIUM 3.5 mmol/L (3.5-5.1); SODIUM 140 mmol/L (135-144)
[2017-10-06] MEDS: LEVOTHYROXINE 150 MCG TAB GTB (08:54)
[2017-10-06] MEDS: FOLIC ACID 1 MG TAB GTB (08:55)
[2017-10-06] MEDS: LACTOBACILLUS RHAMNOSUS CAP PO ×2 (08:55→20:34)
[2017-10-06] MEDS: FLUCONAZOLE 100 MG TAB PO (08:55)
[2017-10-06] MEDS: NEUTRA-PHOS 250 MG PACKET GTB ×2 (08:55→20:33)
[2017-10-06] MEDS: LACTULOSE 30ML CUP GTB (09:00)
[2017-10-06] MEDS: TOBRAMYCIN/0.25NS 300 MG/5 ML INHAL NEB ×3 (09:00→20:28)
[2017-10-06] MEDS: SILDENAFIL 20 MG TAB GTB (09:45)
[2017-10-06] MEDS: MIDODRINE 5 MG TAB GTB ×3 (09:59→17:07)
[2017-10-06] MEDS: MEROPENEM 500MG/50 ML (PMX) 50 ML IVPB (17:07)
[2017-10-06] MEDS: EPOETIN 10000 UNITS/1 ML INJ (ESRD) SC (17:08)
[2017-10-07] MEDS: LANSOPRAZOLE 30 MG CAP GTB (05:13)
[2017-10-07 05:54] LABS: ADD MAN DIFF? NO
[2017-10-07 06:01] LABS: BASOPHIL # 0.1 10^3/ul (0.0-0.1); BASOPHILS % 0.7 % (0.0-2.0); EOSINOPHILS # 0.2 10^3/ul (0.0-0.5); EOSINOPHILS % 1.6 % (0.0-7.0); HEMOGLOBIN 7.2 g/dl (12.0-16.0); LYMPHOCYTES # 2.2 10^3/ul (0.8-2.9); LYMPHOCYTES % 21.3 % (15.0-51.0); MEAN CORPUSCULAR HEMOGLOBIN 30.4 pg (29.0-33.0); MEAN CORPUSCULAR HGB CONC 31.3 g/dl (32.0-37.0); MEAN PLATELET VOLUME 10.3 fl (7.4-10.4); MONOCYTE # 1.4 10^3/ul (0.3-0.9); MONOCYTES % 13.3 % (0.0-11.0); NEUTROPHIL # 6.3 10^3/ul (1.6-7.5); NEUTROPHILS % 61.5 % (39.0-77.0); NUCLEATED RED BLOOD CELLS% 0.2 /100WBC (0.0-0.0); PLATELET COUNT 110 10^3/UL (140-415); RED BLOOD COUNT 2.37 10^6/ul (4.20-5.40); RED CELL DISTRIBUTION WIDTH 18.6 % (11.5-14.5)
[2017-10-07 06:01] LABS: WHITE BLOOD COUNT 10.3 10^3/ul (4.8-10.8)
[2017-10-07] MEDS: LEVOTHYROXINE 150 MCG TAB GTB (06:11)
[2017-10-07 06:27] LABS: ANION GAP 13 (8-16); BLOOD UREA NITROGEN 24 mg/dl (7-20); CALCIUM 7.3 mg/dl (8.4-10.2); CARBON DIOXIDE 23 mmol/L (21-31); CHLORIDE 106 mmol/L (97-110); CREATININE 2.12 mg/dl (0.44-1.00); GLUCOSE 97 mg/dl (70-220); MAGNESIUM 1.6 mg/dl (1.7-2.5); PHOSPHORUS 2.6 mg/dl (2.5-4.9); POTASSIUM 3.1 mmol/L (3.5-5.1); SODIUM 139 mmol/L (135-144)
[2017-10-07] MEDS: SILDENAFIL 20 MG TAB GTB (09:00)
[2017-10-07] MEDS: TOBRAMYCIN/0.25NS 300 MG/5 ML INHAL NEB ×2 (09:29→19:56)
[2017-10-07] MEDS: FOLIC ACID 1 MG TAB GTB (09:33)
[2017-10-07] MEDS: LACTULOSE 30ML CUP GTB (09:33)
[2017-10-07] MEDS: FLUCONAZOLE 100 MG TAB PO (09:34)
[2017-10-07] MEDS: LACTOBACILLUS RHAMNOSUS CAP PO ×2 (09:34→21:41)
[2017-10-07] MEDS: NEUTRA-PHOS 250 MG PACKET GTB ×2 (09:34→21:41)
[2017-10-07] MEDS: POTASSIUM CHLORIDE 20 MEQ POWDER FOR ORAL SOLN GTB (09:41)
[2017-10-07] MEDS: MIDODRINE 5 MG TAB GTB ×3 (09:45→17:09)
[2017-10-07] MEDS: HEPARIN 1000 UNITS/ML 10 ML INJ CATHETER (14:10)
[2017-10-07] MEDS ORDERED: morphine LIQ (10 MG/5 ML) CUP GTB (14:30)
[2017-10-07] MEDS: MAGNESIUM SULFATE 2 GM/50 ML 50 ML IVPB (15:28)
[2017-10-07] MEDS: MEROPENEM 500MG/50 ML (PMX) 50 ML IVPB (17:09)
[2017-10-07] MEDS: VANCOMYCIN 1 GM 250 ML IVPB (18:46)
[2017-10-08] MEDS: LEVOTHYROXINE 150 MCG TAB GTB (06:23)
[2017-10-08] MEDS: LANSOPRAZOLE 30 MG CAP GTB (06:23)
[2017-10-08] MEDS: TOBRAMYCIN/0.25NS 300 MG/5 ML INHAL NEB ×2 (09:12→19:39)
[2017-10-08] MEDS: FLUCONAZOLE 100 MG TAB PO (09:55)
[2017-10-08] MEDS: FOLIC ACID 1 MG TAB GTB (09:55)
[2017-10-08] MEDS: LACTOBACILLUS RHAMNOSUS CAP PO ×2 (09:55→21:21)
[2017-10-08] MEDS: LACTULOSE 30ML CUP GTB (09:55)
[2017-10-08] MEDS: NEUTRA-PHOS 250 MG PACKET GTB ×2 (09:55→21:21)
[2017-10-08] MEDS: SILDENAFIL 20 MG TAB GTB (09:56)
[2017-10-08] MEDS: MIDODRINE 5 MG TAB GTB ×3 (09:59→16:18)
[2017-10-08] MEDS: MEROPENEM 500MG/50 ML (PMX) 50 ML IVPB (16:17)
[2017-10-08] MEDS: EPOETIN 10000 UNITS/1 ML INJ (ESRD) SC (17:15)
[2017-10-09] MEDS: LANSOPRAZOLE 30 MG CAP GTB (06:20)
[2017-10-09] MEDS: LEVOTHYROXINE 150 MCG TAB GTB (06:20)
[2017-10-09 06:57] LABS: ADD MAN DIFF? NO
[2017-10-09 06:58] LABS: WHITE BLOOD COUNT 9.6 10^3/ul (4.8-10.8)
[2017-10-09 06:58] LABS: BASOPHIL # 0.1 10^3/ul (0.0-0.1); BASOPHILS % 0.7 % (0.0-2.0); EOSINOPHILS # 0.2 10^3/ul (0.0-0.5); EOSINOPHILS % 2.2 % (0.0-7.0); HEMATOCRIT 25.3 % (37.0-47.0); HEMOGLOBIN 8.1 g/dl (12.0-16.0); LYMPHOCYTES # 1.9 10^3/ul (0.8-2.9); LYMPHOCYTES % 19.2 % (15.0-51.0); MEAN CORPUSCULAR HEMOGLOBIN 29.9 pg (29.0-33.0); MEAN CORPUSCULAR VOLUME 93.4 fl (82.0-101.0); MEAN PLATELET VOLUME 10.2 fl (7.4-10.4); MONOCYTE # 1.3 10^3/ul (0.3-0.9); MONOCYTES % 13.1 % (0.0-11.0); NEUTROPHIL # 6.2 10^3/ul (1.6-7.5); NEUTROPHILS % 64.3 % (39.0-77.0); PLATELET COUNT 139 10^3/UL (140-415); RED BLOOD COUNT 2.71 10^6/ul (4.20-5.40); RED CELL DISTRIBUTION WIDTH 18.1 % (11.5-14.5)
[2017-10-09 07:25] LABS: ALANINE AMINOTRANSFERASE 12 IU/L (13-69); ALBUMIN 2.8 g/dl (3.3-4.9); ALBUMIN/GLOBULIN RATIO 0.77; ALKALINE PHOSPHATASE 165 IU/L (42-121); ANION GAP 17 (8-16); ASPARTATE AMINO TRANSFERASE 21 IU/L (15-46); BILIRUBIN,INDIRECT 0.2 mg/dl (0-1.1); BILIRUBIN,TOTAL 0.2 mg/dl (0.2-1.3); BLOOD UREA NITROGEN 27 mg/dl (7-20); CALCIUM 8.4 mg/dl (8.4-10.2); CARBON DIOXIDE 24 mmol/L (21-31); CHLORIDE 99 mmol/L (97-110); CREATININE 2.35 mg/dl (0.44-1.00); GLUCOSE 105 mg/dl (70-220); POTASSIUM 3.8 mmol/L (3.5-5.1); SODIUM 136 mmol/L (135-144); TOTAL PROTEIN 6.4 g/dl (6.1-8.1)
[2017-10-09 07:28] LABS: MAGNESIUM 2.4 mg/dl (1.7-2.5)
[2017-10-09 07:28] LABS: PHOSPHORUS 4.6 mg/dl (2.5-4.9)
[2017-10-09] MEDS: LACTOBACILLUS RHAMNOSUS CAP PO ×2 (09:35→20:06)
[2017-10-09] MEDS: LACTULOSE 30ML CUP GTB (09:35)
[2017-10-09] MEDS: NEUTRA-PHOS 250 MG PACKET GTB ×2 (09:35→20:06)
[2017-10-09] MEDS: FLUCONAZOLE 100 MG TAB PO (09:36)
[2017-10-09] MEDS: FOLIC ACID 1 MG TAB GTB (09:36)
[2017-10-09] MEDS: SILDENAFIL 20 MG TAB GTB (09:36)
[2017-10-09] MEDS: TOBRAMYCIN/0.25NS 300 MG/5 ML INHAL NEB ×2 (10:02→19:22)
[2017-10-09] MEDS: MIDODRINE 5 MG TAB GTB ×3 (11:14→16:36)
[2017-10-09] MEDS: HEPARIN 1000 UNITS/ML 10 ML INJ CATHETER (15:37)
[2017-10-09] MEDS: MEROPENEM 500MG/50 ML (PMX) 50 ML IVPB (16:36)
[2017-10-10] MEDS: LEVOTHYROXINE 150 MCG TAB GTB (06:43)
[2017-10-10] MEDS: LANSOPRAZOLE 30 MG CAP GTB (06:43)
[2017-10-10] MEDS: TOBRAMYCIN/0.25NS 300 MG/5 ML INHAL NEB (08:10)
[2017-10-10] MEDS: NEUTRA-PHOS 250 MG PACKET GTB ×2 (08:43→23:18)
[2017-10-10] MEDS: LACTOBACILLUS RHAMNOSUS CAP PO ×2 (08:44→23:18)
[2017-10-10] MEDS: MIDODRINE 5 MG TAB GTB ×3 (08:45→17:17)
[2017-10-10] MEDS: SILDENAFIL 20 MG TAB GTB (08:45)
[2017-10-10] MEDS: FLUCONAZOLE 100 MG TAB PO (08:45)
[2017-10-10] MEDS: LACTULOSE 30ML CUP GTB (08:45)
[2017-10-10] MEDS: FOLIC ACID 1 MG TAB GTB (08:45)
[2017-10-10] MEDS: HEPARIN 1000 UNITS/ML 10 ML INJ CATHETER (23:14)
[2017-10-11] MEDS: ALBUMIN HUMAN 25% 100 ML IV (04:11)
[2017-10-11] MEDS: LEVOTHYROXINE 150 MCG TAB GTB (06:17)
[2017-10-11] MEDS: LANSOPRAZOLE 30 MG CAP GTB (06:17)
[2017-10-11 06:37] LABS: OCCULT BLOOD STOOL NEGATIVE (NEGATIVE)
[2017-10-11 08:41] LABS: ADD MAN DIFF? NO
[2017-10-11] MEDS: NEUTRA-PHOS 250 MG PACKET GTB ×2 (08:52→20:34)
[2017-10-11] MEDS: FOLIC ACID 1 MG TAB GTB (08:52)
[2017-10-11] MEDS: LACTOBACILLUS RHAMNOSUS CAP PO ×2 (08:52→20:33)
[2017-10-11] MEDS: LACTULOSE 30ML CUP GTB (08:52)
[2017-10-11] MEDS: MIDODRINE 5 MG TAB GTB ×3 (09:06→17:36)
[2017-10-11] MEDS: SILDENAFIL 20 MG TAB GTB (09:06)
[2017-10-11 09:11] LABS: ANION GAP 14 (8-16); BLOOD UREA NITROGEN 25 mg/dl (7-20); CALCIUM 8.1 mg/dl (8.4-10.2); CARBON DIOXIDE 26 mmol/L (21-31); CHLORIDE 99 mmol/L (97-110); CREATININE 2.02 mg/dl (0.44-1.00); GLUCOSE 100 mg/dl (70-220); MAGNESIUM 2.1 mg/dl (1.7-2.5); PHOSPHORUS 4.5 mg/dl (2.5-4.9); POTASSIUM 3.4 mmol/L (3.5-5.1); SODIUM 136 mmol/L (135-144)
[2017-10-11 09:40] LABS: BASOPHIL # 0.1 10^3/ul (0.0-0.1); EOSINOPHILS # 0.2 10^3/ul (0.0-0.5); EOSINOPHILS % 2.5 % (0.0-7.0); HEMATOCRIT 23.9 % (37.0-47.0); HEMOGLOBIN 7.6 g/dl (12.0-16.0); LYMPHOCYTES # 1.5 10^3/ul (0.8-2.9); LYMPHOCYTES % 18.4 % (15.0-51.0); MEAN CORPUSCULAR HEMOGLOBIN 29.6 pg (29.0-33.0); MEAN CORPUSCULAR HGB CONC 31.8 g/dl (32.0-37.0); MEAN PLATELET VOLUME 10.3 fl (7.4-10.4); MONOCYTE # 1.1 10^3/ul (0.3-0.9); MONOCYTES % 13.1 % (0.0-11.0); NEUTROPHIL # 5.1 10^3/ul (1.6-7.5); NEUTROPHILS % 64.2 % (39.0-77.0); PLATELET COUNT 136 10^3/UL (140-415); RED BLOOD COUNT 2.57 10^6/ul (4.20-5.40); RED CELL DISTRIBUTION WIDTH 17.6 % (11.5-14.5)
[2017-10-11] MEDS: EPOETIN 10000 UNITS/1 ML INJ (ESRD) SC (17:37)
[2017-10-12] MEDS: LEVOTHYROXINE 150 MCG TAB GTB (06:23)
[2017-10-12] MEDS: LANSOPRAZOLE 30 MG CAP GTB (06:23)
[2017-10-12] MEDS: ACETAMINOPHEN 650MG/20.3ML CUP GTB (08:31)
[2017-10-12] MEDS: LACTOBACILLUS RHAMNOSUS CAP PO ×2 (08:31→22:47)
[2017-10-12] MEDS: FOLIC ACID 1 MG TAB GTB (08:31)
[2017-10-12] MEDS: MIDODRINE 5 MG TAB GTB ×3 (08:33→17:33)
[2017-10-12] MEDS: NEUTRA-PHOS 250 MG PACKET GTB ×2 (08:34→22:44)
[2017-10-12] MEDS: SILDENAFIL 20 MG TAB GTB (08:36)
[2017-10-12] MEDS: LACTULOSE 30ML CUP GTB (08:37)
[2017-10-12] MEDS: ALBUMIN HUMAN 25% 100 ML IV (20:12)
[2017-10-12] MEDS: HEPARIN 1000 UNITS/ML 10 ML INJ CATHETER (22:25)
[2017-10-12] MEDS: SOD CHLORIDE 0.9% 250 ML IV (22:28)
[2017-10-13] MEDS: LANSOPRAZOLE 30 MG CAP GTB (05:21)
[2017-10-13] MEDS: LEVOTHYROXINE 150 MCG TAB GTB (05:55)
[2017-10-13] MEDS: LACTOBACILLUS RHAMNOSUS CAP PO ×2 (08:36→21:32)
[2017-10-13] MEDS: MIDODRINE 5 MG TAB GTB ×3 (08:36→17:22)
[2017-10-13] MEDS: FOLIC ACID 1 MG TAB GTB (08:36)
[2017-10-13] MEDS: SILDENAFIL 20 MG TAB GTB (08:36)
[2017-10-13] MEDS: NEUTRA-PHOS 250 MG PACKET GTB ×2 (08:36→21:32)
[2017-10-13 09:28] LABS: ADD MAN DIFF? NO
[2017-10-13 09:30] LABS: BASOPHIL # 0.1 10^3/ul (0.0-0.1); BASOPHILS % 1.1 % (0.0-2.0); EOSINOPHILS # 0.2 10^3/ul (0.0-0.5); EOSINOPHILS % 3.1 % (0.0-7.0); HEMATOCRIT 23.8 % (37.0-47.0); HEMOGLOBIN 7.6 g/dl (12.0-16.0); LYMPHOCYTES # 1.4 10^3/ul (0.8-2.9); LYMPHOCYTES % 19.1 % (15.0-51.0); MEAN CORPUSCULAR HEMOGLOBIN 29.9 pg (29.0-33.0); MEAN CORPUSCULAR HGB CONC 31.9 g/dl (32.0-37.0); MEAN CORPUSCULAR VOLUME 93.7 fl (82.0-101.0); MEAN PLATELET VOLUME 9.9 fl (7.4-10.4); MONOCYTE # 0.9 10^3/ul (0.3-0.9); MONOCYTES % 12.2 % (0.0-11.0); NEUTROPHIL # 4.8 10^3/ul (1.6-7.5); PLATELET COUNT 133 10^3/UL (140-415); RED BLOOD COUNT 2.54 10^6/ul (4.20-5.40); RED CELL DISTRIBUTION WIDTH 17.4 % (11.5-14.5)
[2017-10-13 09:30] LABS: WHITE BLOOD COUNT 7.5 10^3/ul (4.8-10.8)
[2017-10-13 09:57] LABS: ANION GAP 18 (8-16); BLOOD UREA NITROGEN 24 mg/dl (7-20); CALCIUM 8.7 mg/dl (8.4-10.2); CARBON DIOXIDE 22 mmol/L (21-31); CHLORIDE 101 mmol/L (97-110); CREATININE 2.19 mg/dl (0.44-1.00); GLUCOSE 102 mg/dl (70-220); POTASSIUM 3.5 mmol/L (3.5-5.1); SODIUM 137 mmol/L (135-144)
[2017-10-13] MEDS ORDERED: IODIXANOL LOCM 50 ML BTL (13:55)
[2017-10-13] MEDS ORDERED: HEPARIN 1000 UNITS/ML 10 ML INJ (14:04)
[2017-10-13] MEDS ORDERED: LIDOCAINE 1% (MDV) 20 ML INJ (14:04)
[2017-10-13] MEDS ORDERED: SOD CHLORIDE 0.9% 500 ML (15:51)
[2017-10-13] MEDS: EPOETIN 10000 UNITS/1 ML INJ (ESRD) SC (17:23)
[2017-10-13] MEDS ORDERED: PENDING SANTYL ORDER FOR WOUND CARE XX (19:30)
[2017-10-13] MEDS: ACETAMINOPHEN 650MG/20.3ML CUP GTB (21:32)
[2017-10-14 05:38] LABS: ADD MAN DIFF? NO
[2017-10-14 05:48] LABS: BASOPHIL # 0.1 10^3/ul (0.0-0.1); BASOPHILS % 1.3 % (0.0-2.0); EOSINOPHILS # 0.2 10^3/ul (0.0-0.5); EOSINOPHILS % 3.2 % (0.0-7.0); HEMATOCRIT 23.4 % (37.0-47.0); HEMOGLOBIN 7.6 g/dl (12.0-16.0); LYMPHOCYTES # 1.7 10^3/ul (0.8-2.9); LYMPHOCYTES % 24.3 % (15.0-51.0); MEAN CORPUSCULAR HEMOGLOBIN 29.7 pg (29.0-33.0); MEAN CORPUSCULAR HGB CONC 32.5 g/dl (32.0-37.0); MEAN CORPUSCULAR VOLUME 91.4 fl (82.0-101.0); MEAN PLATELET VOLUME 10.1 fl (7.4-10.4); MONOCYTES % 14.7 % (0.0-11.0); NEUTROPHIL # 3.9 10^3/ul (1.6-7.5); NEUTROPHILS % 55.9 % (39.0-77.0); PLATELET COUNT 146 10^3/UL (140-415); RED BLOOD COUNT 2.56 10^6/ul (4.20-5.40)
[2017-10-14] MEDS: LEVOTHYROXINE 150 MCG TAB GTB (06:10)
[2017-10-14] MEDS: LANSOPRAZOLE 30 MG CAP GTB (06:10)
[2017-10-14 06:20] LABS: ANION GAP 17 (8-16); BLOOD UREA NITROGEN 28 mg/dl (7-20); CALCIUM 8.6 mg/dl (8.4-10.2); CARBON DIOXIDE 22 mmol/L (21-31); CHLORIDE 100 mmol/L (97-110); CREATININE 2.74 mg/dl (0.44-1.00); GLUCOSE 90 mg/dl (70-220); POTASSIUM 3.5 mmol/L (3.5-5.1); SODIUM 135 mmol/L (135-144)
[2017-10-14] MEDS: ALBUMIN HUMAN 25% 100 ML IV (08:07)
[2017-10-14] MEDS: LACTOBACILLUS RHAMNOSUS CAP PO ×2 (09:00→21:09)
[2017-10-14] MEDS: SILDENAFIL 20 MG TAB GTB (09:00)
[2017-10-14] MEDS: NEUTRA-PHOS 250 MG PACKET GTB ×2 (09:00→21:09)
[2017-10-14] MEDS: MIDODRINE 5 MG TAB GTB ×3 (09:00→17:00)
[2017-10-14] MEDS: FOLIC ACID 1 MG TAB GTB (09:00)
[2017-10-14 09:11] LABS: IMMEDIATE SPIN CROSSMATCH 1 4
[2017-10-14] MEDS: HEPARIN 1000 UNITS/ML 10 ML INJ CATHETER (10:17)
[2017-10-14] MEDS: SOD CHLORIDE 0.9% 1,000 ML IV (12:08)
[2017-10-15] MEDS: ALBUTEROL/IPRATROPIUM (NEB) 3 ML AMP HHN ×2 (01:13→20:36)
[2017-10-15] MEDS: LEVOTHYROXINE 150 MCG TAB GTB (06:30)
[2017-10-15] MEDS: LANSOPRAZOLE 30 MG CAP GTB (06:30)
[2017-10-15 08:29] LABS: ADD MAN DIFF? NO
[2017-10-15 08:32] LABS: BASOPHIL # 0.1 10^3/ul (0.0-0.1); EOSINOPHILS # 0.2 10^3/ul (0.0-0.5); EOSINOPHILS % 2.6 % (0.0-7.0); HEMATOCRIT 28.6 % (37.0-47.0); HEMOGLOBIN 9.4 g/dl (12.0-16.0); LYMPHOCYTES # 1.3 10^3/ul (0.8-2.9); LYMPHOCYTES % 17.4 % (15.0-51.0); MEAN CORPUSCULAR HEMOGLOBIN 29.7 pg (29.0-33.0); MEAN CORPUSCULAR HGB CONC 32.9 g/dl (32.0-37.0); MEAN CORPUSCULAR VOLUME 90.2 fl (82.0-101.0); MEAN PLATELET VOLUME 9.6 fl (7.4-10.4); MONOCYTE # 0.9 10^3/ul (0.3-0.9); MONOCYTES % 12.4 % (0.0-11.0); NEUTROPHIL # 4.8 10^3/ul (1.6-7.5); PLATELET COUNT 140 10^3/UL (140-415); RED BLOOD COUNT 3.17 10^6/ul (4.20-5.40); RED CELL DISTRIBUTION WIDTH 17.8 % (11.5-14.5)
[2017-10-15 08:32] LABS: WHITE BLOOD COUNT 7.2 10^3/ul (4.8-10.8)
[2017-10-15 08:50] LABS: ANION GAP 17 (8-16); BLOOD UREA NITROGEN 22 mg/dl (7-20); CALCIUM 8.6 mg/dl (8.4-10.2); CARBON DIOXIDE 23 mmol/L (21-31); CHLORIDE 101 mmol/L (97-110); CREATININE 2.17 mg/dl (0.44-1.00); GLUCOSE 118 mg/dl (70-220); POTASSIUM 3.4 mmol/L (3.5-5.1); SODIUM 138 mmol/L (135-144)
[2017-10-15] MEDS: FOLIC ACID 1 MG TAB GTB (09:17)
[2017-10-15] MEDS: NEUTRA-PHOS 250 MG PACKET GTB ×2 (09:17→21:27)
[2017-10-15] MEDS: MIDODRINE 5 MG TAB GTB ×3 (09:17→17:29)
[2017-10-15] MEDS: LACTOBACILLUS RHAMNOSUS CAP PO ×2 (09:18→21:27)
[2017-10-15] MEDS: ACETAMINOPHEN 650MG/20.3ML CUP GTB (09:40)
[2017-10-15] MEDS: SILDENAFIL 20 MG TAB GTB (09:40)
[2017-10-15] MEDS: SOD CHLORIDE 0.9% 1,000 ML IV (12:47)
[2017-10-15 13:20] LABS: HEMATOCRIT 27.9 % (37.0-47.0); HEMOGLOBIN 9.1 g/dl (12.0-16.0)
[2017-10-15] MEDS: EPOETIN 10000 UNITS/1 ML INJ (ESRD) SC (17:31)
[2017-10-15 23:45] LABS: Allen Test ACCEPTAB; Arterial Base Excess 0.9 mmol/L (-3.0-3); Arterial COHb 0.3 % (0.0-3.0); Arterial Fraction of Oxyhgb 98.5 % (93.0-99.0); Arterial HCO3 25.4 mmol/L (22.0-26.0); Arterial MetHb 0.2 % (0.0-1.5); Arterial Total Hemglobin 10.5 g/dl (12.0-18.0); Arterial pCO2 39.9 mmhg (35-45); Blood Gas Mean Airway Pressure 12; Blood Gas PS 16; MODE VENT - SIMV; Site Right Radial
[2017-10-16] MEDS: ALBUTEROL/IPRATROPIUM (NEB) 3 ML AMP HHN ×2 (01:41→20:44)
[2017-10-16] MEDS: LOPERAMIDE 2 MG CAP PO ×2 (06:14→10:45)
[2017-10-16] MEDS: LEVOTHYROXINE 150 MCG TAB GTB (06:14)
[2017-10-16] MEDS: LANSOPRAZOLE 30 MG CAP GTB (06:14)
[2017-10-16 06:35] LABS: ADD MAN DIFF? NO
[2017-10-16 07:01] LABS: BASOPHIL # 0.1 10^3/ul (0.0-0.1); BASOPHILS % 0.8 % (0.0-2.0); EOSINOPHILS # 0.3 10^3/ul (0.0-0.5); EOSINOPHILS % 3.9 % (0.0-7.0); HEMOGLOBIN 9.6 g/dl (12.0-16.0); LYMPHOCYTES # 1.8 10^3/ul (0.8-2.9); LYMPHOCYTES % 21.4 % (15.0-51.0); MEAN CORPUSCULAR HEMOGLOBIN 29.5 pg (29.0-33.0); MEAN CORPUSCULAR VOLUME 92.3 fl (82.0-101.0); MEAN PLATELET VOLUME 10.9 fl (7.4-10.4); MONOCYTE # 1.2 10^3/ul (0.3-0.9); MONOCYTES % 13.5 % (0.0-11.0); NEUTROPHILS % 59.2 % (39.0-77.0); PLATELET COUNT 128 10^3/UL (140-415); RED BLOOD COUNT 3.25 10^6/ul (4.20-5.40); RED CELL DISTRIBUTION WIDTH 17.6 % (11.5-14.5)
[2017-10-16 07:01] LABS: WHITE BLOOD COUNT 8.5 10^3/ul (4.8-10.8)
[2017-10-16 07:07] LABS: ANION GAP 17 (8-16); BLOOD UREA NITROGEN 29 mg/dl (7-20); CALCIUM 8.7 mg/dl (8.4-10.2); CARBON DIOXIDE 24 mmol/L (21-31); CHLORIDE 98 mmol/L (97-110); CREATININE 2.75 mg/dl (0.44-1.00); GLUCOSE 113 mg/dl (70-220); POTASSIUM 3.3 mmol/L (3.5-5.1); SODIUM 136 mmol/L (135-144)
[2017-10-16] MEDS: MIDODRINE 5 MG TAB GTB ×2 (08:49→14:14)
[2017-10-16] MEDS: LACTOBACILLUS RHAMNOSUS CAP PO ×2 (08:51→21:10)
[2017-10-16] MEDS: NEUTRA-PHOS 250 MG PACKET GTB ×2 (08:51→21:10)
[2017-10-16] MEDS: FOLIC ACID 1 MG TAB GTB (08:51)
[2017-10-16] MEDS: SILDENAFIL 20 MG TAB GTB (09:00)
[2017-10-16] MEDS ORDERED: POTASSIUM CHLORIDE (SR) 20 MEQ TAB PO (15:28)
[2017-10-16] MEDS: POTASSIUM CHLORIDE 20 MEQ POWDER FOR ORAL SOLN PO (15:38)
[2017-10-16] MEDS: ALBUMIN HUMAN 25% 100 ML IV (16:51)
[2017-10-16] MEDS: MIDODRINE 2.5 MG TAB PO (18:35)
[2017-10-16] MEDS: HEPARIN 1000 UNITS/ML 10 ML INJ CATHETER (20:24)
[2017-10-17] MEDS: ALBUTEROL/IPRATROPIUM (NEB) 3 ML AMP HHN (01:52)
[2017-10-17] MEDS: LANSOPRAZOLE 30 MG CAP GTB (06:32)
[2017-10-17] MEDS: LEVOTHYROXINE 150 MCG TAB GTB (06:32)
[2017-10-17 07:19] LABS: ADD MAN DIFF? NO
[2017-10-17 07:21] LABS: WHITE BLOOD COUNT 7.6 10^3/ul (4.8-10.8)
[2017-10-17 07:21] LABS: BASOPHIL # 0.1 10^3/ul (0.0-0.1); BASOPHILS % 0.8 % (0.0-2.0); EOSINOPHILS # 0.3 10^3/ul (0.0-0.5); EOSINOPHILS % 4.2 % (0.0-7.0); HEMATOCRIT 29.2 % (37.0-47.0); HEMOGLOBIN 9.3 g/dl (12.0-16.0); LYMPHOCYTES # 1.3 10^3/ul (0.8-2.9); LYMPHOCYTES % 17.2 % (15.0-51.0); MEAN CORPUSCULAR HEMOGLOBIN 29.6 pg (29.0-33.0); MEAN CORPUSCULAR HGB CONC 31.8 g/dl (32.0-37.0); MEAN PLATELET VOLUME 9.6 fl (7.4-10.4); MONOCYTE # 1.1 10^3/ul (0.3-0.9); MONOCYTES % 15.1 % (0.0-11.0); NEUTROPHIL # 4.7 10^3/ul (1.6-7.5); NEUTROPHILS % 61.8 % (39.0-77.0); PLATELET COUNT 170 10^3/UL (140-415); RED BLOOD COUNT 3.14 10^6/ul (4.20-5.40); RED CELL DISTRIBUTION WIDTH 17.6 % (11.5-14.5)
[2017-10-17 08:19] LABS: ANION GAP 15 (8-16); BLOOD UREA NITROGEN 19 mg/dl (7-20); CALCIUM 8.8 mg/dl (8.4-10.2); CARBON DIOXIDE 28 mmol/L (21-31); CHLORIDE 99 mmol/L (97-110); CREATININE 2.01 mg/dl (0.44-1.00); GLUCOSE 109 mg/dl (70-220); POTASSIUM 3.4 mmol/L (3.5-5.1); SODIUM 139 mmol/L (135-144)
[2017-10-17] MEDS: FOLIC ACID 1 MG TAB GTB (09:27)
[2017-10-17] MEDS: NEUTRA-PHOS 250 MG PACKET GTB ×2 (09:27→21:26)
[2017-10-17] MEDS: LACTOBACILLUS RHAMNOSUS CAP PO ×2 (09:27→21:26)
[2017-10-17] MEDS: MIDODRINE 2.5 MG TAB PO ×2 (09:31→14:15)
[2017-10-17] MEDS: SILDENAFIL 20 MG TAB GTB (09:42)
[2017-10-17] MEDS: MIDODRINE 5 MG TAB GTB (18:28)
[2017-10-18] MEDS: LOPERAMIDE 2 MG CAP PO ×3 (00:23→09:45)
[2017-10-18] MEDS: LEVOTHYROXINE 150 MCG TAB GTB (06:39)
[2017-10-18] MEDS: LANSOPRAZOLE 30 MG CAP GTB (06:39)
[2017-10-18] MEDS: SILDENAFIL 20 MG TAB GTB ×2 (09:00→10:33)
[2017-10-18] MEDS: FOLIC ACID 1 MG TAB GTB (09:45)
[2017-10-18] MEDS: LACTOBACILLUS RHAMNOSUS CAP PO ×2 (09:45→21:57)
[2017-10-18] MEDS: MIDODRINE 5 MG TAB GTB ×3 (09:45→16:41)
[2017-10-18] MEDS: NEUTRA-PHOS 250 MG PACKET GTB ×2 (09:45→21:57)
[2017-10-18] MEDS: ALBUMIN HUMAN 25% 100 ML IV (13:01)
[2017-10-18] MEDS: ACETAMINOPHEN 650MG/20.3ML CUP GTB (15:05)
[2017-10-18] MEDS: HEPARIN 1000 UNITS/ML 10 ML INJ CATHETER (15:38)
[2017-10-18] MEDS: EPOETIN 10000 UNITS/1 ML INJ (ESRD) SC (16:42)
[2017-10-19] MEDS: LANSOPRAZOLE 30 MG CAP GTB (06:16)
[2017-10-19] MEDS: LEVOTHYROXINE 150 MCG TAB GTB (06:16)
[2017-10-19] MEDS: LACTOBACILLUS RHAMNOSUS CAP PO ×2 (09:32→21:03)
[2017-10-19] MEDS: FOLIC ACID 1 MG TAB GTB (09:32)
[2017-10-19] MEDS: MIDODRINE 5 MG TAB GTB ×3 (09:32→16:39)
[2017-10-19] MEDS: SILDENAFIL 20 MG TAB GTB (09:32)
[2017-10-19] MEDS: NEUTRA-PHOS 250 MG PACKET GTB ×2 (09:32→21:02)
[2017-10-19] MEDS: LOPERAMIDE 2 MG CAP PO (09:32)
[2017-10-19] MEDS: ALBUTEROL/IPRATROPIUM (NEB) 3 ML AMP HHN (19:59)
[2017-10-20] MEDS: LEVOTHYROXINE 150 MCG TAB GTB (06:34)
[2017-10-20] MEDS: LANSOPRAZOLE 30 MG CAP GTB (06:34)
[2017-10-20] MEDS: FOLIC ACID 1 MG TAB GTB (08:50)
[2017-10-20] MEDS: NEUTRA-PHOS 250 MG PACKET GTB ×2 (08:50→21:40)
[2017-10-20] MEDS: LACTOBACILLUS RHAMNOSUS CAP PO ×2 (08:50→21:40)
[2017-10-20] MEDS: SILDENAFIL 20 MG TAB GTB (09:00)
[2017-10-20 09:08] LABS: HEMATOCRIT 28.5 % (37.0-47.0)
[2017-10-20 09:08] LABS: HEMOGLOBIN 8.7 g/dl (12.0-16.0)
[2017-10-20] MEDS: MIDODRINE 5 MG TAB GTB ×3 (10:13→18:47)
[2017-10-20] MEDS: ALBUMIN HUMAN 25% 100 ML IV ×2 (13:24→14:26)
[2017-10-20] MEDS: HEPARIN 1000 UNITS/ML 10 ML INJ CATHETER (16:25)
[2017-10-20] MEDS ORDERED: LIDOCAINE 1% (MDV) 20 ML INJ ×2 (16:32→16:47)
[2017-10-20] MEDS ORDERED: IODIXANOL LOCM 50 ML BTL (16:47)
[2017-10-20] MEDS ORDERED: FENTAnyl 50 MCG/ML VIAL (16:47)
[2017-10-20] MEDS: EPOETIN 10000 UNITS/1 ML INJ (ESRD) SC (18:48)
[2017-10-21] MEDS: LANSOPRAZOLE 30 MG CAP GTB (06:00)
[2017-10-21] MEDS: LEVOTHYROXINE 150 MCG TAB GTB (07:00)
[2017-10-21] MEDS: SILDENAFIL 20 MG TAB GTB (09:00)
[2017-10-21] MEDS: NEUTRA-PHOS 250 MG PACKET GTB ×2 (09:18→22:02)
[2017-10-21] MEDS: FOLIC ACID 1 MG TAB GTB (09:18)
[2017-10-21] MEDS: LACTOBACILLUS RHAMNOSUS CAP PO ×2 (09:18→22:02)
[2017-10-21] MEDS: MIDODRINE 5 MG TAB GTB ×3 (09:18→18:41)
[2017-10-22] MEDS: LANSOPRAZOLE 30 MG CAP GTB (06:28)
[2017-10-22] MEDS: LEVOTHYROXINE 150 MCG TAB GTB (06:28)
[2017-10-22 07:53] LABS: ANION GAP 17 (8-16); BLOOD UREA NITROGEN 25 mg/dl (7-20); CALCIUM 9.3 mg/dl (8.4-10.2); CARBON DIOXIDE 28 mmol/L (21-31); CHLORIDE 98 mmol/L (97-110); CREATININE 2.88 mg/dl (0.44-1.00); GLUCOSE 114 mg/dl (70-220); MAGNESIUM 1.8 mg/dl (1.7-2.5); POTASSIUM 3.5 mmol/L (3.5-5.1); SODIUM 139 mmol/L (135-144)
[2017-10-22] MEDS: SILDENAFIL 20 MG TAB GTB (09:00)
[2017-10-22] MEDS: ALBUMIN HUMAN 25% 100 ML IV (10:20)
[2017-10-22] MEDS: HEPARIN 1000 UNITS/ML 10 ML INJ CATHETER (12:07)
[2017-10-22] MEDS: LACTOBACILLUS RHAMNOSUS CAP PO ×2 (13:17→20:00)
[2017-10-22] MEDS: FOLIC ACID 1 MG TAB GTB (13:18)
[2017-10-22] MEDS: MIDODRINE 5 MG TAB GTB ×3 (13:19→17:11)
[2017-10-22] MEDS: EPOETIN 10000 UNITS/1 ML INJ (ESRD) SC (17:11)
[2017-10-23] MEDS: LANSOPRAZOLE 30 MG CAP GTB (06:52)
[2017-10-23] MEDS: LEVOTHYROXINE 150 MCG TAB GTB (06:52)
[2017-10-23 07:03] LABS: ANION GAP 15 (8-16); BLOOD UREA NITROGEN 19 mg/dl (7-20); CALCIUM 9.2 mg/dl (8.4-10.2); CARBON DIOXIDE 29 mmol/L (21-31); CHLORIDE 98 mmol/L (97-110); GLUCOSE 130 mg/dl (70-220); MAGNESIUM 1.8 mg/dl (1.7-2.5); PHOSPHORUS 3.9 mg/dl (2.5-4.9); POTASSIUM 3.4 mmol/L (3.5-5.1); SODIUM 139 mmol/L (135-144)
[2017-10-23] MEDS ORDERED: POTASSIUM CHLORIDE 20 MEQ POWDER FOR ORAL SOLN GTB (09:00)
[2017-10-23] MEDS: SILDENAFIL 20 MG TAB GTB (09:00)
[2017-10-23] MEDS: MIDODRINE 5 MG TAB GTB ×3 (09:45→16:33)
[2017-10-23] MEDS: LACTOBACILLUS RHAMNOSUS CAP PO ×2 (09:45→21:02)
[2017-10-23] MEDS: FOLIC ACID 1 MG TAB GTB (09:45)
[2017-10-23] MEDS: POTASSIUM CHLORIDE 20 MEQ POWDER FOR ORAL SOLN GTB (09:46)
[2017-10-24] MEDS: LANSOPRAZOLE 30 MG CAP GTB (06:21)
[2017-10-24] MEDS: LEVOTHYROXINE 150 MCG TAB GTB (06:24)
[2017-10-24] MEDS: MIDODRINE 5 MG TAB GTB ×4 (09:00→21:42)
[2017-10-24] MEDS: FOLIC ACID 1 MG TAB GTB (09:55)
[2017-10-24] MEDS: LACTOBACILLUS RHAMNOSUS CAP PO ×2 (09:56→21:42)
[2017-10-24] MEDS: SILDENAFIL 20 MG TAB GTB (09:56)
[2017-10-25] MEDS: LANSOPRAZOLE 30 MG CAP GTB (06:10)
[2017-10-25] MEDS: LEVOTHYROXINE 150 MCG TAB GTB (06:10)
[2017-10-25 08:10] LABS: HEMATOCRIT 28.4 % (37.0-47.0)
[2017-10-25 08:10] LABS: HEMOGLOBIN 8.8 g/dl (12.0-16.0)
[2017-10-25] MEDS: LACTOBACILLUS RHAMNOSUS CAP PO ×2 (09:28→21:51)
[2017-10-25] MEDS: FOLIC ACID 1 MG TAB GTB (09:28)
[2017-10-25] MEDS: SILDENAFIL 20 MG TAB GTB (10:29)
[2017-10-25] MEDS: MIDODRINE 5 MG TAB GTB ×3 (11:40→21:56)
[2017-10-25] MEDS: ALBUMIN HUMAN 25% 100 ML IV (17:36)
[2017-10-25] MEDS: EPOETIN ALFA 1,000 UNITS/0.1 ML VIAL SC (20:06)
[2017-10-25] MEDS: HEPARIN 1000 UNITS/ML 10 ML INJ CATHETER (20:09)
[2017-10-26] MEDS: ALBUTEROL/IPRATROPIUM (NEB) 3 ML AMP HHN ×2 (02:03→10:01)
[2017-10-26] MEDS: LANSOPRAZOLE 30 MG CAP GTB (06:13)
[2017-10-26] MEDS: LEVOTHYROXINE 150 MCG TAB GTB (06:13)
[2017-10-26] MEDS: FOLIC ACID 1 MG TAB GTB (08:53)
[2017-10-26] MEDS: ACETAMINOPHEN 650MG/20.3ML CUP GTB (08:53)
[2017-10-26] MEDS: MIDODRINE 5 MG TAB GTB ×3 (08:53→17:39)
[2017-10-26] MEDS: LACTOBACILLUS RHAMNOSUS CAP PO ×2 (08:53→22:28)
[2017-10-26] MEDS: SILDENAFIL 20 MG TAB GTB (08:54)
[2017-10-26] MEDS: ONDANSETRON 4 MG INJ IV (10:41)
[2017-10-26] MEDS: LORAZEPAM 0.5 MG TAB GTB (18:09)
[2017-10-26] MEDS: BARIUM SULFATE 135 ML (E-Z HD) PO (20:00)
[2017-10-27] MEDS: LANSOPRAZOLE 30 MG CAP GTB (06:10)
[2017-10-27] MEDS: LEVOTHYROXINE 150 MCG TAB GTB (06:10)
[2017-10-27] MEDS: MIDODRINE 5 MG TAB GTB ×3 (08:49→17:23)
[2017-10-27] MEDS: FOLIC ACID 1 MG TAB GTB (08:49)
[2017-10-27] MEDS: LACTOBACILLUS RHAMNOSUS CAP PO ×2 (08:49→21:51)
[2017-10-27] MEDS: SILDENAFIL 20 MG TAB GTB (08:49)
[2017-10-27 13:22] LABS: ADD MAN DIFF? NO
[2017-10-27 13:23] LABS: BASOPHIL # 0.1 10^3/ul (0.0-0.1); BASOPHILS % 0.7 % (0.0-2.0); EOSINOPHILS # 0.3 10^3/ul (0.0-0.5); EOSINOPHILS % 2.9 % (0.0-7.0); HEMATOCRIT 28.1 % (37.0-47.0); HEMOGLOBIN 8.9 g/dl (12.0-16.0); LYMPHOCYTES # 1.4 10^3/ul (0.8-2.9); LYMPHOCYTES % 12.1 % (15.0-51.0); MEAN CORPUSCULAR HEMOGLOBIN 29.8 pg (29.0-33.0); MEAN CORPUSCULAR HGB CONC 31.7 g/dl (32.0-37.0); MEAN PLATELET VOLUME 9.2 fl (7.4-10.4); MONOCYTE # 1.4 10^3/ul (0.3-0.9); MONOCYTES % 11.6 % (0.0-11.0); NEUTROPHIL # 8.4 10^3/ul (1.6-7.5); NEUTROPHILS % 71.5 % (39.0-77.0); PLATELET COUNT 167 10^3/UL (140-415); RED BLOOD COUNT 2.99 10^6/ul (4.20-5.40); RED CELL DISTRIBUTION WIDTH 17.7 % (11.5-14.5)
[2017-10-27 13:23] LABS: WHITE BLOOD COUNT 11.7 10^3/ul (4.8-10.8)
[2017-10-27] MEDS: ALBUTEROL/IPRATROPIUM (NEB) 3 ML AMP HHN (13:31)
[2017-10-27 13:48] LABS: INR 1.09; PROTIME 14.2 Sec (11.9-14.9); PT RATIO 1.1
[2017-10-27 13:49] LABS: PARTIAL THROMBOPLASTIN TIME 43.5 Sec (25.0-35.0)
[2017-10-27] MEDS ORDERED: LIDOCAINE 1% (MDV) 10 ML INJ (17:10)
[2017-10-27] MEDS: EPOETIN ALFA 1,000 UNITS/0.1 ML VIAL SC (17:22)
[2017-10-27] MEDS: ALBUMIN HUMAN 25% 100 ML IV (18:38)
[2017-10-27] MEDS: HEPARIN 1000 UNITS/ML 10 ML INJ CATHETER (21:30)
[2017-10-27] MEDS: ACETAMINOPHEN 650MG/20.3ML CUP GTB (21:51)
[2017-10-28] MEDS: LANSOPRAZOLE 30 MG CAP GTB (06:18)
[2017-10-28] MEDS: LEVOTHYROXINE 150 MCG TAB GTB (06:18)
[2017-10-28] MEDS: SILDENAFIL 20 MG TAB GTB (08:46)
[2017-10-28] MEDS: LACTOBACILLUS RHAMNOSUS CAP PO ×2 (08:46→21:22)
[2017-10-28] MEDS: MIDODRINE 5 MG TAB GTB ×3 (08:46→17:23)
[2017-10-28] MEDS: FOLIC ACID 1 MG TAB GTB (08:47)
[2017-10-28] MEDS: ALBUTEROL/IPRATROPIUM (NEB) 3 ML AMP HHN (13:20)
[2017-10-29] MEDS: LANSOPRAZOLE 30 MG CAP GTB (05:50)
[2017-10-29] MEDS: LEVOTHYROXINE 150 MCG TAB GTB (06:05)
[2017-10-29] MEDS: SOD CHLORIDE 0.9% 250 ML IV (06:07)
[2017-10-29] MEDS: ALBUMIN HUMAN 25% 100 ML IV ×2 (08:22→10:05)
[2017-10-29] MEDS: MIDODRINE 5 MG TAB GTB ×3 (09:00→17:37)
[2017-10-29] MEDS: HEPARIN 1000 UNITS/ML 10 ML INJ CATHETER (11:33)
[2017-10-29] MEDS: LACTOBACILLUS RHAMNOSUS CAP PO ×2 (12:10→22:44)
[2017-10-29] MEDS: FOLIC ACID 1 MG TAB GTB (12:10)
[2017-10-29 12:26] LABS: ADD MAN DIFF? NO
[2017-10-29 12:39] LABS: WHITE BLOOD COUNT 7.2 10^3/ul (4.8-10.8)
[2017-10-29 12:39] LABS: BASOPHILS % 0.6 % (0.0-2.0); EOSINOPHILS # 0.2 10^3/ul (0.0-0.5); EOSINOPHILS % 3.4 % (0.0-7.0); HEMATOCRIT 28.6 % (37.0-47.0); HEMOGLOBIN 8.7 g/dl (12.0-16.0); LYMPHOCYTES # 0.9 10^3/ul (0.8-2.9); MEAN CORPUSCULAR HEMOGLOBIN 28.8 pg (29.0-33.0); MEAN CORPUSCULAR HGB CONC 30.4 g/dl (32.0-37.0); MEAN CORPUSCULAR VOLUME 94.7 fl (82.0-101.0); MEAN PLATELET VOLUME 9.7 fl (7.4-10.4); MONOCYTES % 13.7 % (0.0-11.0); NEUTROPHILS % 69.5 % (39.0-77.0); PLATELET COUNT 167 10^3/UL (140-415); RED BLOOD COUNT 3.02 10^6/ul (4.20-5.40); RED CELL DISTRIBUTION WIDTH 17.6 % (11.5-14.5)
[2017-10-29 12:53] LABS: ANION GAP 16 (8-16); BLOOD UREA NITROGEN 13 mg/dl (7-20); CARBON DIOXIDE 30 mmol/L (21-31); CHLORIDE 97 mmol/L (97-110); CREATININE 1.36 mg/dl (0.44-1.00); GLUCOSE 104 mg/dl (70-220); MAGNESIUM 1.9 mg/dl (1.7-2.5); POTASSIUM 3.5 mmol/L (3.5-5.1); SODIUM 139 mmol/L (135-144)
[2017-10-29 13:28] LABS: HEPATITIS B SURFACE ANTIGEN NEGATIVE (NEGATIVE)
[2017-10-29 13:46] LABS: HEPATITIS B SURFACE ANTIBODY NEGATIVE (NEGATIVE)
[2017-10-29] MEDS: SODIUM PHOSPHATE 15 MMOL in SOD CHLORIDE 0.9% 250 ML IVPB (14:40)
[2017-10-29] MEDS: SILDENAFIL 20 MG TAB GTB (15:51)
[2017-10-29] MEDS: EPOETIN ALFA 1,000 UNITS/0.1 ML VIAL SC (17:37)
[2017-10-30] MEDS: LEVOTHYROXINE 150 MCG TAB GTB (06:53)
[2017-10-30] MEDS: LANSOPRAZOLE 30 MG CAP GTB (06:53)
[2017-10-30] MEDS: FOLIC ACID 1 MG TAB GTB (08:15)
[2017-10-30] MEDS: MIDODRINE 5 MG TAB GTB ×3 (08:16→17:35)
[2017-10-30] MEDS: LACTOBACILLUS RHAMNOSUS CAP PO ×2 (08:17→21:05)
[2017-10-30] MEDS: SILDENAFIL 20 MG TAB GTB (08:17)
[2017-10-31] MEDS: LANSOPRAZOLE 30 MG CAP GTB (05:44)
[2017-10-31] MEDS: LEVOTHYROXINE 150 MCG TAB GTB (05:44)
[2017-10-31] MEDS: FOLIC ACID 1 MG TAB GTB (08:29)
[2017-10-31] MEDS: LACTOBACILLUS RHAMNOSUS CAP PO (08:29)
[2017-10-31] MEDS: SILDENAFIL 20 MG TAB GTB (08:30)
[2017-10-31] MEDS: MIDODRINE 5 MG TAB GTB ×3 (08:30→17:26)
[2017-10-31 09:14] LABS: ADD MAN DIFF? NO
[2017-10-31 09:19] LABS: BASOPHIL # 0.1 10^3/ul (0.0-0.1); BASOPHILS % 0.8 % (0.0-2.0); EOSINOPHILS # 0.3 10^3/ul (0.0-0.5); EOSINOPHILS % 3.3 % (0.0-7.0); HEMATOCRIT 26.6 % (37.0-47.0); HEMOGLOBIN 8.1 g/dl (12.0-16.0); LYMPHOCYTES # 1.4 10^3/ul (0.8-2.9); LYMPHOCYTES % 15.2 % (15.0-51.0); MEAN CORPUSCULAR HEMOGLOBIN 28.2 pg (29.0-33.0); MEAN CORPUSCULAR HGB CONC 30.5 g/dl (32.0-37.0); MEAN CORPUSCULAR VOLUME 92.7 fl (82.0-101.0); MEAN PLATELET VOLUME 9.8 fl (7.4-10.4); MONOCYTE # 1.4 10^3/ul (0.3-0.9); MONOCYTES % 15.3 % (0.0-11.0); NEUTROPHIL # 5.8 10^3/ul (1.6-7.5); NEUTROPHILS % 64.3 % (39.0-77.0); PLATELET COUNT 192 10^3/UL (140-415); RED BLOOD COUNT 2.87 10^6/ul (4.20-5.40); RED CELL DISTRIBUTION WIDTH 17.7 % (11.5-14.5)
[2017-10-31 09:46] LABS: ANION GAP 17 (8-16); BLOOD UREA NITROGEN 29 mg/dl (7-20); CALCIUM 8.8 mg/dl (8.4-10.2); CARBON DIOXIDE 27 mmol/L (21-31); CHLORIDE 95 mmol/L (97-110); CREATININE 2.44 mg/dl (0.44-1.00); GLUCOSE 110 mg/dl (70-220); POTASSIUM 3.5 mmol/L (3.5-5.1); SODIUM 135 mmol/L (135-144)
[2017-10-31 09:47] LABS: PHOSPHORUS 3.4 mg/dl (2.5-4.9)
[2017-10-31 09:47] LABS: MAGNESIUM 1.8 mg/dl (1.7-2.5)
== END 2017-10-31 19:57 | disposition other institution (70) | DRG 870 ==
LOC: ICU 09-27 01:25 → TEL 10-06 22:55 → E/R 12:54 → MS4 15:52
PROC: 02HV33Z Insertion of Infusion Device into Superior Vena Cava, Percutaneous Approach (ICD-10-PCS; 2017-10-13 12:00)
PROC: 02HV33Z Insertion of Infusion Device into Superior Vena Cava, Percutaneous Approach (ICD-10-PCS; principal; 2017-10-13 13:41)
PROC: 5A1955Z Respiratory Ventilation, Greater than 96 Consecutive Hours (ICD-10-PCS; 2017-10-13 13:41)
PROC: 0W9G3ZX Drainage of Peritoneal Cavity, Percutaneous Approach, Diagnostic (ICD-10-PCS; 2017-10-13 13:41)
PROC: 0W9G3ZZ Drainage of Peritoneal Cavity, Percutaneous Approach (ICD-10-PCS; 2017-10-13 13:41)
PROC: 5A1D70Z Performance of Urinary Filtration, Intermittent, Less than 6 Hours Per Day (ICD-10-PCS; 2017-10-13 13:41)
PROC: 06PY33Z Removal of Infusion Device from Lower Vein, Percutaneous Approach (ICD-10-PCS; 2017-10-13 13:41)
DX: A41.9 Sepsis, unspecified organism (principal); J96.21 Acute and chronic respiratory failure with hypoxia; R65.21 Severe sepsis with septic shock; I46.9 Cardiac arrest, cause unspecified; N18.6 End stage renal disease; G92 Toxic encephalopathy; K65.8 Other peritonitis; J95.851 Ventilator associated pneumonia; E87.1 Hypo-osmolality and hyponatremia; I12.0 Hypertensive chronic kidney disease with stage 5 chronic kidney disease or end stage renal disease; I25.811 Atherosclerosis of native coronary artery of transplanted heart without angina pectoris; E87.2 Acidosis; R18.8 Other ascites; E11.22 Type 2 diabetes mellitus with diabetic chronic kidney disease; Z93.0 Tracheostomy status; Y84.8 Other medical procedures as the cause of abnormal reaction of the patient, or of later complication, without mention of misadventure at the time of the procedure; Y92.128 Other place in nursing home as the place of occurrence of the external cause; I25.10 Atherosclerotic heart disease of native coronary artery without angina pectoris; E87.5 Hyperkalemia; I27.20 Pulmonary hypertension, unspecified; E03.9 Hypothyroidism, unspecified; E83.9 Disorder of mineral metabolism, unspecified; E87.6 Hypokalemia; D63.1 Anemia in chronic kidney disease; B96.5 Pseudomonas (aeruginosa) (mallei) (pseudomallei) as the cause of diseases classified elsewhere; Z93.1 Gastrostomy status; Z99.2 Dependence on renal dialysis; Z95.0 Presence of cardiac pacemaker; Z95.1 Presence of aortocoronary bypass graft
CPT/HCPCS: 36415; 36430; 36569; 36600; 71045; 74018; 74176; 74230; 76700; 76705; 76937; 80048; 80053; 80061; 80202; 82042; 82270; 82803; 82962; 83036; 83605; 83735; 84100; 84439; 84443; 84484; 85014; 85018; 85025; 85610; 85730; 86706; 86850; 86900; 86901; 86920; 87040; 87070; 87075; 87081; 87102; 87116; 87340; 88104; 88305; 89051; 89220; 90935; 92526; 92610; 92611; 92950; 93005; 93923; 93970; 93971; 94002; 94003; 94640; 94664; 96365; 96367; 96375; 99291-25